=== PATIENT | female | born 1940 | race Caucasian/White ===

== ENCOUNTER → 2018-08-28 | Outpatient (CLI) | payer MEDICARE, OTHER ==
[2018-06-16 15:00] VITALS: BP 132/67
[~2018-08-28] MED LIST: AMLO10TA4 PO; AMLO5TAB4 PO; ASPI-482 PO; ASPI325T11 PO; CIPR500T94 PO; GLIP5TAB22 PO; HYDR12.58 PO; LOSA100T14 PO; METO50TA6 PO; Metoprolol Tartrate PO; NITR0.4T SL; ONDA4TAB7 PO; Ondansetron Hcl/Pf IV; POTA20TA4 PO
--- NOTE | 2018-08-28 10:13 | KCIC ---
Examination: Ultrasound kidneys HISTORY: History of chronic kidney disease stage III COMPARISON: None available FINDINGS: The right kidney measures 10.4 x 4.8 x 4.4 cm. The left kidney measures 9.2 x 3.6 x 4.4 cm. There is cortical thinning identified in the bilateral kidneys. No evidence of hydronephrosis. Urinary bladder is mildly distended Left ureteral jet is not identified. Atherosclerotic aorta. IMPRESSION: Mild thinning of the bilateral renal cortex likely medical renal disease. Electronically signed by: Mat Manzano MD (08/28/2018 10:09 AM) [place] [id number]
== END | disposition home or self-care (01) ==
LOC: KCIC US 09:08
PROVIDERS: ATTEND Nurse Practitioner Adult Health
DX: I12.9 Hypertensive chronic kidney disease with stage 1 through stage 4 chronic kidney disease, or unspecified chronic kidney disease (principal); E11.22 Type 2 diabetes mellitus with diabetic chronic kidney disease; N18.3 Chronic kidney disease, stage 3 (moderate); I70.0 Atherosclerosis of aorta; N32.89 Other specified disorders of bladder
CPT/HCPCS: 76770

== ENCOUNTER 2018-10-19 08:23 | Emergency (ER) | payer MEDICARE, OTHER ==
[~2018-10-19] VITALS: Ht 162.6 cm; Wt 88.5 kg
[~2018-10-19 08:23] MED LIST changes: +AMLO10TA6 PO; +ATOR10TA60 PO
[2018-10-19 08:37] VITALS: BP 171/78
[2018-10-19] MEDS ORDERED: HYDROcodone/APAP 5/325MG 1 TAB TABLET PO ONE (09:15)
[2018-10-19] MEDS ORDERED: METHOCARBAMOL 750 MG TABLET PO ONE (09:15)
--- NOTE | 2018-10-19 09:35 | PHYS DOC ---
Past Medical History Past Medical History: Diabetes-Type II, Hypertension (GEORGE HENDERSON APRN) Past Surgical History: Hysterectomy Additional Past Surgical Histo: arthoscopic knee, eye surgery (GEORGE HENDERSON APRN) Alcohol Use: None Drug Use: None (GEORGE HENDERSON APRN) Adult General Chief Complaint Chief Complaint: UPPER EXTREMITY PAIN HPI HPI Patient is a 78 year old [female, accompanied by her son, with complaints of right shoulder pain that radiates down her entire arm. Patient denies any injury , recent heavy lifting, or numbness. Patient states that her right arm feels weak and that the pain increases with range of motion. Patient states she is unable to lift her arm past 90 anteriorly or laterally. She states that yesterday the pain felt like soreness, this morning she woke up and the pain was more severe. She currently rates the pain a 6 out of 10 on the pain scale at rest and states that the pain increases to at least an 8 out of 10 with movement. Denies any other symptoms including chest pain, shortness of breath, headache, incoordination, swelling, fever, abdominal pain, nausea, vomiting, or diarrhea. (GEORGE HENDERSON APRN) Review of Systems Review of Systems Constitutional: Denies fever or chills [] Eyes: Denies change in visual acuity, redness, or eye pain [] HENT: Denies nasal congestion or sore throat [] Respiratory: Denies cough or shortness of breath [] Cardiovascular: No additional information not addressed in HPI [] GI: Denies abdominal pain, nausea, vomiting, or diarrhea [] Musculoskeletal: Denies back pain; see HPI Integument: Denies rash or skin lesions [] Neurologic: Denies headache, focal weakness or sensory changes [] Complete systems were reviewed and found to be within normal limits, except as documented in this note. (GEORGE HENDERSON APRN) Current Medications Current Medications Current Medications Medications (Trade) Dose Ordered Sig/Deacon Start Time Stop Time Status Last Admin Dose Admin Acetaminophen/ Hydrocodone Bitart (Lortab 5/325) 1 tab 1X ONCE 10/19/18 09:15 10/19/18 09:16 DC 10/19/18 09:22 1 TAB Methocarbamol (Robaxin) 1,500 mg 1X ONCE 10/19/18 09:15 2/3/19 09:16 DC 10/19/18 09:21 1,500 MG (ESPERANZA CARLSON DO) Allergies Allergies Allergies Coded Allergies Type Severity Reaction Last Updated Verified Penicillins Allergy Intermediate Rash 01/24/15 Yes (ESPERANZA CARLSON DO) Physical Exam Physical Exam Constitutional: Well developed, well nourished, no acute distress, non-toxic appearance. [] HENT: Normocephalic, atraumatic, bilateral external ears normal, nose normal. [] Eyes: conjunctiva normal, no discharge. [] Neck: Normal range of motion, no stridor. [] Skin: Warm, dry, no erythema, no rash. [] Extremities: No tenderness of R trapezius, no cyanosis, no clubbing, no edema; pain with ROM of R shoulder, pt unable to lift past 90 anteriorly or laterally , patient reports pain with palpation of the lateral shoulder, no crepitus or deformity noted, equal dinkey engine mechanic bilaterally, no drift of right upper extremity with testing. [] Neurologic: Alert and oriented X 3, normal motor function, normal sensory function, no focal deficits noted. [] Psychologic: Affect normal, judgement normal, mood normal. [] (GEORGE HENDERSON APRN) Current Patient Data Vital Signs Vital Signs Date Time Temp Pulse Resp B/P (MAP) Pulse Ox O2 Delivery O2 Flow Rate FiO2 10/19/18 09:22 18 98 Room Air 10/19/18 08:37 97.8 92 171/78 (109) 97.8 (ESPERANZA CARLSON DO) EKG EKG [] (GEORGE HENDERSON APRN) Radiology/Procedures Radiology/Procedures PROCEDURE: SHOULDER 2+V RIGHT Right shoulder radiograph 10/19/2018 9:09 AM INDICATION: Right shoulder pain, no known injury. COMPARISON: Right shoulder radiograph September 29, 2018. TECHNIQUE: 3 views the right shoulder are provided. FINDINGS: There is no acute fracture or dislocation. Mild osteoarthrosis of the right acromioclavicular joint. Bone mineralization is within normal limits. Joint spaces are maintained. Regional soft tissues are within normal limits. There is no soft tissue gas or osseous erosion. IMPRESSION: No acute fracture or dislocation. [] (GEORGE HENDERSON APRN) Course & Med Decision Making Course & Med Decision Making Pertinent Labs and Imaging studies reviewed. (See chart for details) Dx: R shoulder strain X-ray was negative for any acute fx or dislocation. Pt was given robaxin and a hydrocodone in the ER, reports decreased pain after medications. Follow up with your primary care doctor if symptoms persist, return to the ER if symptoms worsen. Prescriptions written for robaxin and hydrocodone. Patient verbalized an understanding of home care, medications, follow-up, and return to ED instructions and was in agreement with the plan of care. [] (GEORGE HENDERSON APRN) Dragon Disclaimer Dragon Disclaimer This electronic medical record was generated, in whole or in part, using a voice recognition dictation system. (GEORGE HENDERSON APRN) Departure Departure Impression: Primary Impression: Right shoulder pain Additional Impression: Right shoulder strain Disposition: 01 HOME, SELF-CARE Condition: STABLE Referrals: MARCELA KOO MD (PCP) Patient Instructions: Shoulder Sprain Additional Instructions: Fill the prescriptions and use them as directed. Activity as tolerated. You may apply ice or heat to the sore area as needed for comfort. Follow-up with your primary care doctor if symptoms persist, return to the ER symptoms worsen Scripts Hydrocodone Bit/Acetaminophen (HYDROCODONE-APAP 5-325 ) 1 Tab Tablet 1 TAB PO PRN Q6HRS PRN for PAIN for 3 Days, #12 TAB 0 Refills Prov: GEORGE HENDERSON APRN 10/19/18 Methocarbamol (ROBAXIN-750) 750 Mg Tablet 750 MG PO QID PRN for PAIN for 5 Days, #20 TAB 0 Refills Prov: GEORGE HENDEROSN APRN 10/19/18 Attending Signature Attending Signature I have reviewed the PA/NON DESTRUCTIVE EVALUATION TECHNICIAN's note and plan of care. I was available for consultation as needed during the patient's visit in the emergency department. I agree with the clinical impression, plan, and disposition. (ESPERANZA CARLSON DO) Problem Qualifiers Primary Impression: Right shoulder pain Chronicity: acute Qualified Codes: M25.511 - Pain in right shoulder Additional Impression: Right shoulder strain Encounter type: initial encounter Qualified Codes: S46.911A - Strain of unspecified muscle, fascia and tendon at shoulder and upper arm level, right arm , initial encounter GEORGE HENDERSON APRN Oct 19, 2018 09:35 ESPERANZA CARLSON DO Oct 19, 2018 15:57
--- NOTE | 2018-10-19 09:38 | RAD ---
Right shoulder radiograph 10/19/2018 9:09 AM INDICATION: Right shoulder pain, no known injury. COMPARISON: Right shoulder radiograph September 29, 2018. TECHNIQUE: 3 views the right shoulder are provided. FINDINGS: There is no acute fracture or dislocation. Mild osteoarthrosis of the right acromioclavicular joint. Bone mineralization is within normal limits. Joint spaces are maintained. Regional soft tissues are within normal limits. There is no soft tissue gas or osseous erosion. IMPRESSION: No acute fracture or dislocation. Electronically signed by: Darlyn Fortune MD (10/19/2018 9:33 AM) [facility]
[2018-10-19] MEDS ORDERED: METH-38 PO (09:57)
[2018-10-19] MEDS ORDERED: HYDR-2761 PO (09:57)
== END 2018-10-19 10:18 | disposition home or self-care (01) ==
LOC: ER 08:23
DX: S46.811A Strain of other muscles, fascia and tendons at shoulder and upper arm level, right arm, initial encounter (principal); E11.9 Type 2 diabetes mellitus without complications; I10 Essential (primary) hypertension; Z90.710 Acquired absence of both cervix and uterus; Z88.0 Allergy status to penicillin; X50.9XXA Other and unspecified overexertion or strenuous movements or postures, initial encounter; Y93.89 Activity, other specified; Y92.89 Other specified places as the place of occurrence of the external cause; Y99.8 Other external cause status
CPT/HCPCS: 73030; 99283

== ENCOUNTER 2018-11-13 21:34 | Inpatient (IN) | payer MEDICARE, OTHER ==
[~2018-11-13] VITALS: Ht 157.5 cm; Wt 80.3 kg
[~2018-11-13 21:34] MED LIST changes: -AMLO10TA6 PO; +AMLO10TA8 PO; +HYDR-2761 PO; +METH-38 PO
[2018-11-13] MEDS ORDERED: IV NORMAL SALINE 1000ML BAG 1,000 ML IV SCH (21:51)
[2018-11-13 21:59] LABS: BASO # 0.1 x10^3/uL (0.0-0.2); BASO % 1 % (0-3); EOS # 0.1 x10^3/uL (0.0-0.7); EOS % 1 % (0-3); HEMATOCRIT 35.9 % (36.0-47.0); HEMOGLOBIN 11.9 g/dL (12.0-15.5); LYMPH # 2.6 x10^3/uL (1.0-4.8); LYMPH % 32 % (24-48); MEAN CORPUSCULAR HEMOGLOBIN 26 pg (25-35); MEAN CORPUSCULAR HGB CONC 33 g/dL (31-37); MEAN CORPUSCULAR VOLUME 79 fL (79-100); MONO # 0.5 x10^3/uL (0.0-1.1); MONO % 6 % (0-9); NEUT # 4.9 x10^3uL (1.8-7.7); NEUT % 60 % (31-73); PLATELET COUNT 222 x10^3/uL (140-400); RED BLOOD COUNT 4.55 x10^6/uL (3.50-5.40); RED CELL DISTRIBUTION WIDTH 14.4 % (11.5-14.5); WHITE BLOOD COUNT 8.1 x10^3/uL (4.0-11.0)
[2018-11-13 22:07] LABS: CALCIUM 9.3 mg/dL (8.5-10.1); CREATININE 1.8 mg/dL (0.6-1.0); GFR 27.4; POTASSIUM 3.4 mmol/L (3.5-5.1)
[2018-11-13 22:13] LABS: ALBUMIN 4.1 g/dL (3.4-5.0); ALBUMIN/GLOBULIN RATIO 1.3 (1.0-1.7); MAGNESIUM 1.9 mg/dL (1.8-2.4); TOTAL BILIRUBIN 0.3 mg/dL (0.2-1.0); TOTAL PROTEIN 7.2 g/dL (6.4-8.2)
--- NOTE | 2018-11-13 22:24 | PHYS DOC ---
Past Medical History Past Medical History: Diabetes-Type II, Hypertension Additional Past Medical Histor: CVA? Past Surgical History: Hysterectomy Additional Past Surgical Histo: arthoscopic knee, eye surgery Alcohol Use: None Drug Use: None Adult General Chief Complaint Chief Complaint: WEAKNESS/GENERALIZED HPI HPI Patient is a 78-year-old female who presents with report of right leg weakness that occurred at home this evening. Patient states that she had tried to get up from a sitting position to standing position and she was not able to bear weight on that leg. She denies any pain. She states that as soon as she got up she fell right back. She states that she tried to lift her leg and tried to abduct her leg but was unable to due to weakness. Patient also states that she was having some difficulty finding words during that period of time. She states that symptoms lasted close to an hour. She states that currently there resolved. She also indicates that she is just having some generalized weakness and felt a little bit of dizziness as well. She denies any fever. She denies any nausea, vomiting or diaphoresis. She denies chest pain or shortness breath. Review of Systems Review of Systems Constitutional: Denies fever or chills [] Respiratory: Denies cough or shortness of breath [] Cardiovascular: No additional information not addressed in HPI [] GI: Denies abdominal pain, nausea, vomiting, bloody stools or diarrhea [] Musculoskeletal: Denies back pain or joint pain [] Integument: Denies rash or skin lesions [] Neurologic: Denies headache. Complains of right leg weakness and speech deficit [] All other systems were reviewed and found to be within normal limits, except as documented in this note. Current Medications Current Medications Current Medications Medications (Trade) Dose Ordered Sig/Deacon Start Time Stop Time Status Last Admin Dose Admin Sodium Chloride 1,000 ml @ 1,000 mls/hr Q1H 11/13/18 21:51 11/13/18 22:50 DC 11/13/18 22:26 1,000 MLS/HR Allergies Allergies Allergies Coded Allergies Type Severity Reaction Last Updated Verified Penicillins Allergy Intermediate Rash 01/24/15 Yes Physical Exam Physical Exam Constitutional: Well developed, well nourished, no acute distress, non-toxic appearance. [] HENT: Normocephalic, atraumatic, bilateral external ears normal, oropharynx moist, no oral exudates, nose normal. [] Eyes: PERRLA, EOMI, conjunctiva normal, no discharge. [] Neck: Normal range of motion, no tenderness, supple, no stridor. [] Cardiovascular: Regular rate and rhythm[] Lungs & Thorax: Bilateral breath sounds clear to auscultation [] Abdomen: Bowel sounds normal, soft, no tenderness. [] Skin: Warm, dry, no erythema, no rash. [] Extremities: No tenderness, no cyanosis, no clubbing, ROM intact, no edema. [] Neurologic: Alert and oriented X 3, normal motor function, normal sensory function, no focal deficits noted. [] Current Patient Data Vital Signs Vital Signs Date Time Temp Pulse Resp B/P (MAP) Pulse Ox O2 Delivery O2 Flow Rate FiO2 11/13/18 21:34 98.0 87 20 197/89 (125) 100 Room Air 98.0 Lab Values Laboratory Tests Test 11/13/18 21:39 11/13/18 21:50 11/13/18 22:45 Glucose (Fingerstick) 129 mg/dL (70-99) H White Blood Count 8.1 x10^3/uL (4.0-11.0) Red Blood Count 4.55 x10^6/uL (3.50-5.40) Hemoglobin 11.9 g/dL (12.0-15.5) L Hematocrit 35.9 % (36.0-47.0) L Mean Corpuscular Volume 79 fL (79-100) Mean Corpuscular Hemoglobin 26 pg (25-35) Mean Corpuscular Hemoglobin Concent 33 g/dL (31-37) Red Cell Distribution Width 14.4 % (11.5-14.5) Platelet Count 222 x10^3/uL (140-400) Neutrophils (%) (Auto) 60 % (31-73) Lymphocytes (%) (Auto) 32 % (24-48) Monocytes (%) (Auto) 6 % (0-9) Eosinophils (%) (Auto) 1 % (0-3) Basophils (%) (Auto) 1 % (0-3) Neutrophils # (Auto) 4.9 x10^3uL (1.8-7.7) Lymphocytes # (Auto) 2.6 x10^3/uL (1.0-4.8) Monocytes # (Auto) 0.5 x10^3/uL (0.0-1.1) Eosinophils # (Auto) 0.1 x10^3/uL (0.0-0.7) Basophils # (Auto) 0.1 x10^3/uL (0.0-0.2) Sodium Level 144 mmol/L (136-145) Potassium Level 3.4 mmol/L (3.5-5.1) L Chloride Level 102 mmol/L (98-107) Carbon Dioxide Level 24 mmol/L (21-32) Anion Gap 18 (6-14) H Blood Urea Nitrogen 27 mg/dL (7-20) H Creatinine 1.8 mg/dL (0.6-1.0) H Estimated GFR (Cockcroft-Gault) 27.4 BUN/Creatinine Ratio 15 (6-20) Glucose Level 133 mg/dL (70-99) H Calcium Level 9.3 mg/dL (8.5-10.1) Magnesium Level 1.9 mg/dL (1.8-2.4) Total Bilirubin 0.3 mg/dL (0.2-1.0) Aspartate Amino Transferase (AST) 14 U/L (15-37) L Alanine Aminotransferase (ALT) 15 U/L (14-59) Alkaline Phosphatase 132 U/L (46-116) H Troponin I Quantitative < 0.017 ng/mL (0.000-0.055) Total Protein 7.2 g/dL (6.4-8.2) Albumin 4.1 g/dL (3.4-5.0) Albumin/Globulin Ratio 1.3 (1.0-1.7) Thyroid Stimulating Hormone (TSH) 5.714 uIU/mL (0.358-3.74) H Urine Color Yellow Urine Clarity Clear Urine pH 5.5 Urine Specific [place] 1.020 Urine Protein Negative mg/dL (NEG-TRACE) Urine Glucose (UA) Negative mg/dL (NEG) Urine Ketones (Stick) Negative mg/dL (NEG) Urine Blood Negative (NEG) Urine Nitrite Negative (NEG) Urine Bilirubin Negative (NEG) Urine Urobilinogen Dipstick 0.2 mg/dL (0.2 mg/dL) Urine Leukocyte Esterase Small (NEG) Urine RBC 0 /HPF (0-2) Urine WBC 5-10 /HPF (0-4) Urine Squamous Epithelial Cells Occ /LPF Urine Bacteria Many /HPF (0-FEW) Urine Mucus Mod /LPF Laboratory Tests 11/13/18 21:50 Laboratory Tests 11/13/18 21:50 EKG EKG [] Interpretation Time: EKG demonstrates normal sinus rhythm with rate of 78. Radiology/Procedures Radiology/Procedures [] Course & Med Decision Making Course & Med Decision Making Pertinent Labs and Imaging studies reviewed. (See chart for details) [] Dragon Disclaimer Dragon Disclaimer This electronic medical record was generated, in whole or in part, using a voice recognition dictation system. Departure Departure Impression: Primary Impression: TIA (transient ischemic attack) Disposition: ADMITTED INPATIENT Admitting Physician: Yandy Cedeño Condition: GOOD Referrals: MARCELA KOO MD (PCP) AYSE RHODES Jr., DO Nov 13, 2018 22:24
[2018-11-13 22:57] LABS: BILIRUBIN,URINE NEGATIVE (NEG); CLARITY,URINE CLEAR; COLOR,URINE YELLOW; NITRITE,URINE NEGATIVE (NEG); PH,URINE 5.5; PROTEIN,URINE NEGATIVE (NEG-TRACE); UROBILINOGEN,URINE 0.2 mg/dL (0.2 mg/dL)
[2018-11-13 23:03] LABS: BACTERIA,URINE MANY /HPF (0-FEW); RBC,URINE 0 /HPF (0-2); SQUAMOUS EPITHELIAL CELL,UR OCC /LPF
--- NOTE | 2018-11-13 23:30 | RAD ---
EXAM: AP View of the chest DATE: 11/13/2018 9:51 PM INDICATION: Weakness COMPARISON: 09/29/2018 FINDINGS: The heart is not enlarged. Mediastinal and hilar contours are normal. No focal parenchymal airspace opacity. No pleural effusion or pneumothorax. Diffusely decreased bone mineral density. IMPRESSION: 1. No radiographic evidence for acute cardiopulmonary process. Electronically signed by: Hunter Anderson MD (11/13/2018 11:27 PM) [id number]
[2018-11-14] VITALS (7 sets, daily range): BP systolic 125–148; BP diastolic 61–74
[2018-11-14] MEDS ORDERED: cloNIDine HCL 0.1 MG TABLET ONE (00:24)
[2018-11-14] MEDS ORDERED: cloNIDine HCL 0.1 MG TABLET PO ONE (01:00)
[2018-11-14 05:34] LABS: BASO % 1 % (0-3); EOS # 0.1 x10^3/uL (0.0-0.7); EOS % 1 % (0-3); HEMATOCRIT 31.9 % (36.0-47.0); HEMOGLOBIN 10.7 g/dL (12.0-15.5); LYMPH # 2.7 x10^3/uL (1.0-4.8); LYMPH % 36 % (24-48); MEAN CORPUSCULAR HEMOGLOBIN 27 pg (25-35); MEAN CORPUSCULAR HGB CONC 34 g/dL (31-37); MEAN CORPUSCULAR VOLUME 79 fL (79-100); MONO # 0.4 x10^3/uL (0.0-1.1); MONO % 6 % (0-9); NEUT # 4.2 x10^3uL (1.8-7.7); NEUT % 57 % (31-73); PLATELET COUNT 184 x10^3/uL (140-400); RED BLOOD COUNT 4.03 x10^6/uL (3.50-5.40); WHITE BLOOD COUNT 7.4 x10^3/uL (4.0-11.0)
[2018-11-14 05:52] LABS: CALCIUM 8.7 mg/dL (8.5-10.1); CREATININE 1.5 mg/dL (0.6-1.0); GFR 33.8
[2018-11-14 05:55] LABS: POTASSIUM 2.9 mmol/L (3.5-5.1)
[2018-11-14] MEDS ORDERED: POTASSIUM CHLORIDE 20 MEQ TABLET.ER. PO ONE (07:00)
--- NOTE | 2018-11-14 08:39 | PDOC ---
PROGRESS NOTES Subjective Subjective Patient reports R LE weakness has resolved. Objective Objective Vital Signs Date Time Temp Pulse Resp B/P (MAP) Pulse Ox O2 Delivery O2 Flow Rate FiO2 11/14/18 07:55 Room Air 11/14/18 07:15 98.0 68 20 148/74 (98) 97 98.0 Intake and Output 11/14/18 06:59 Intake Total 1100 ml Balance 1100 ml Intake Oral 100 ml IV Total 1000 ml # Voids 2 Physical Exam Abdomen: Normal bowel sounds, Soft, No tenderness Heart: Regular rate Extremities: No edema General: Alert, Oriented X3, No acute distress Lungs: Clear to auscultation Neuro: Other (R UE and R LE 4-5/5) Plan Plan of Care 1. R LE weakness - apparently resolved overnight. Patient had similar episode of R UE and LE weakness about 2 weeks ago which gradually resolved. MRI of her brain was ordered as outpatient but she was unable to have this due to her severe thoracic kyphosis. CT head was attempted last night but same positioning problem prevented her from going in the scanner. Neurology consult pending. Will also have therapies assess her, start ASA daily. She was not on aspirin when her symptoms occurred. 2. hypokalemia - replace po and follow lab. 3. possible UTI - 5-10 WBC's in urine but also some squamous cells, await culture results. 4. HTN - BP quite elevated last night, tx with prn Clonidine. Will resume home meds and follow. 5. DM2 - has been diet-controlled for her. 6. CKD III - appears basically stable on lab. 7. subclinical hypothyroidism - TSH mildly elevated, will check T4. Comment Review of Relevant I have reviewed the following items cherie (where applicable) has been applied. Labs Laboratory Tests Test 11/13/18 21:39 11/13/18 21:50 11/13/18 22:45 11/14/18 04:50 Glucose (Fingerstick) 129 mg/dL (70-99) White Blood Count 8.1 x10^3/uL (4.0-11.0) 7.4 x10^3/uL (4.0-11.0) Red Blood Count 4.55 x10^6/uL (3.50-5.40) 4.03 x10^6/uL (3.50-5.40) Hemoglobin 11.9 g/dL (12.0-15.5) 10.7 g/dL (12.0-15.5) Hematocrit 35.9 % (36.0-47.0) 31.9 % (36.0-47.0) Mean Corpuscular Volume 79 fL (79-100) 79 fL (79-100) Mean Corpuscular Hemoglobin 26 pg (25-35) 27 pg (25-35) Mean Corpuscular Hemoglobin Concent 33 g/dL (31-37) 34 g/dL (31-37) Red Cell Distribution Width 14.4 % (11.5-14.5) 14.0 % (11.5-14.5) Platelet Count 222 x10^3/uL (140-400) 184 x10^3/uL (140-400) Neutrophils (%) (Auto) 60 % (31-73) 57 % (31-73) Lymphocytes (%) (Auto) 32 % (24-48) 36 % (24-48) Monocytes (%) (Auto) 6 % (0-9) 6 % (0-9) Eosinophils (%) (Auto) 1 % (0-3) 1 % (0-3) Basophils (%) (Auto) 1 % (0-3) 1 % (0-3) Neutrophils # (Auto) 4.9 x10^3uL (1.8-7.7) 4.2 x10^3uL (1.8-7.7) Lymphocytes # (Auto) 2.6 x10^3/uL (1.0-4.8) 2.7 x10^3/uL (1.0-4.8) Monocytes # (Auto) 0.5 x10^3/uL (0.0-1.1) 0.4 x10^3/uL (0.0-1.1) Eosinophils # (Auto) 0.1 x10^3/uL (0.0-0.7) 0.1 x10^3/uL (0.0-0.7) Basophils # (Auto) 0.1 x10^3/uL (0.0-0.2) 0.0 x10^3/uL (0.0-0.2) Sodium Level 144 mmol/L (136-145) 142 mmol/L (136-145) Potassium Level 3.4 mmol/L (3.5-5.1) 2.9 mmol/L (3.5-5.1) Chloride Level 102 mmol/L (98-107) 105 mmol/L (98-107) Carbon Dioxide Level 24 mmol/L (21-32) 26 mmol/L (21-32) Anion Gap 18 (6-14) 11 (6-14) Blood Urea Nitrogen 27 mg/dL (7-20) 21 mg/dL (7-20) Creatinine 1.8 mg/dL (0.6-1.0) 1.5 mg/dL (0.6-1.0) Estimated GFR (Cockcroft-Gault) 27.4 33.8 BUN/Creatinine Ratio 15 (6-20) Glucose Level 133 mg/dL (70-99) 115 mg/dL (70-99) Calcium Level 9.3 mg/dL (8.5-10.1) 8.7 mg/dL (8.5-10.1) Magnesium Level 1.9 mg/dL (1.8-2.4) Total Bilirubin 0.3 mg/dL (0.2-1.0) Aspartate Amino Transf (AST/SGOT) 14 U/L (15-37) Alanine Aminotransferase (ALT/SGPT) 15 U/L (14-59) Alkaline Phosphatase 132 U/L (46-116) Troponin I Quantitative < 0.017 ng/mL (0.000-0.055) Total Protein 7.2 g/dL (6.4-8.2) Albumin 4.1 g/dL (3.4-5.0) Albumin/Globulin Ratio 1.3 (1.0-1.7) Thyroid Stimulating Hormone (TSH) 5.714 uIU/mL (0.358-3.74) Urine Color Yellow Urine Clarity Clear Urine pH 5.5 Urine Specific [place] 1.020 Urine Protein Negative mg/dL (NEG-TRACE) Urine Glucose (UA) Negative mg/dL (NEG) Urine Ketones (Stick) Negative mg/dL (NEG) Urine Blood Negative (NEG) Urine Nitrite Negative (NEG) Urine Bilirubin Negative (NEG) Urine Urobilinogen Dipstick 0.2 mg/dL (0.2 mg/dL) Urine Leukocyte Esterase Small (NEG) Urine RBC 0 /HPF (0-2) Urine WBC 5-10 /HPF (0-4) Urine Squamous Epithelial Cells Occ /LPF Urine Bacteria Many /HPF (0-FEW) Urine Mucus Mod /LPF Test 11/14/18 07:26 Glucose (Fingerstick) 109 mg/dL (70-99) Laboratory Tests Test 11/13/18 21:39 11/13/18 21:50 11/13/18 22:45 11/14/18 04:50 Glucose (Fingerstick) 129 mg/dL (70-99) White Blood Count 8.1 x10^3/uL (4.0-11.0) 7.4 x10^3/uL (4.0-11.0) Red Blood Count 4.55 x10^6/uL (3.50-5.40) 4.03 x10^6/uL (3.50-5.40) Hemoglobin 11.9 g/dL (12.0-15.5) 10.7 g/dL (12.0-15.5) Hematocrit 35.9 % (36.0-47.0) 31.9 % (36.0-47.0) Mean Corpuscular Volume 79 fL (79-100) 79 fL (79-100) Mean Corpuscular Hemoglobin 26 pg (25-35) 27 pg (25-35) Mean Corpuscular Hemoglobin Concent 33 g/dL (31-37) 34 g/dL (31-37) Red Cell Distribution Width 14.4 % (11.5-14.5) 14.0 % (11.5-14.5) Platelet Count 222 x10^3/uL (140-400) 184 x10^3/uL (140-400) Neutrophils (%) (Auto) 60 % (31-73) 57 % (31-73) Lymphocytes (%) (Auto) 32 % (24-48) 36 % (24-48) Monocytes (%) (Auto) 6 % (0-9) 6 % (0-9) Eosinophils (%) (Auto) 1 % (0-3) 1 % (0-3) Basophils (%) (Auto) 1 % (0-3) 1 % (0-3) Neutrophils # (Auto) 4.9 x10^3uL (1.8-7.7) 4.2 x10^3uL (1.8-7.7) Lymphocytes # (Auto) 2.6 x10^3/uL (1.0-4.8) 2.7 x10^3/uL (1.0-4.8) Monocytes # (Auto) 0.5 x10^3/uL (0.0-1.1) 0.4 x10^3/uL (0.0-1.1) Eosinophils # (Auto) 0.1 x10^3/uL (0.0-0.7) 0.1 x10^3/uL (0.0-0.7) Basophils # (Auto) 0.1 x10^3/uL (0.0-0.2) 0.0 x10^3/uL (0.0-0.2) Sodium Level 144 mmol/L (136-145) 142 mmol/L (136-145) Potassium Level 3.4 mmol/L (3.5-5.1) 2.9 mmol/L (3.5-5.1) Chloride Level 102 mmol/L (98-107) 105 mmol/L (98-107) Carbon Dioxide Level 24 mmol/L (21-32) 26 mmol/L (21-32) Anion Gap 18 (6-14) 11 (6-14) Blood Urea Nitrogen 27 mg/dL (7-20) 21 mg/dL (7-20) Creatinine 1.8 mg/dL (0.6-1.0) 1.5 mg/dL (0.6-1.0) Estimated GFR (Cockcroft-Gault) 27.4 33.8 BUN/Creatinine Ratio 15 (6-20) Glucose Level 133 mg/dL (70-99) 115 mg/dL (70-99) Calcium Level 9.3 mg/dL (8.5-10.1) 8.7 mg/dL (8.5-10.1) Magnesium Level 1.9 mg/dL (1.8-2.4) Total Bilirubin 0.3 mg/dL (0.2-1.0) Aspartate Amino Transf (AST/SGOT) 14 U/L (15-37) Alanine Aminotransferase (ALT/SGPT) 15 U/L (14-59) Alkaline Phosphatase 132 U/L (46-116) Troponin I Quantitative < 0.017 ng/mL (0.000-0.055) Total Protein 7.2 g/dL (6.4-8.2) Albumin 4.1 g/dL (3.4-5.0) Albumin/Globulin Ratio 1.3 (1.0-1.7) Thyroid Stimulating Hormone (TSH) 5.714 uIU/mL (0.358-3.74) Urine Color Yellow Urine Clarity Clear Urine pH 5.5 Urine Specific [place] 1.020 Urine Protein Negative mg/dL (NEG-TRACE) Urine Glucose (UA) Negative mg/dL (NEG) Urine Ketones (Stick) Negative mg/dL (NEG) Urine Blood Negative (NEG) Urine Nitrite Negative (NEG) Urine Bilirubin Negative (NEG) Urine Urobilinogen Dipstick 0.2 mg/dL (0.2 mg/dL) Urine Leukocyte Esterase Small (NEG) Urine RBC 0 /HPF (0-2) Urine WBC 5-10 /HPF (0-4) Urine Squamous Epithelial Cells Occ /LPF Urine Bacteria Many /HPF (0-FEW) Urine Mucus Mod /LPF Test 11/14/18 07:26 Glucose (Fingerstick) 109 mg/dL (70-99) Medications Current Medications Sodium Chloride 1,000 ml @ 1,000 mls/hr Q1H IV Last administered on 11/13/18at 22:26; Start 11/13/18 at 21:51; Stop 11/13/18 at 22:50; Status DC Clonidine HCl (Catapres) 0.1 mg STK-MED ONCE .ROUTE ; Start 11/14/18 at 00:24; Stop 11/14/18 at 00:25; Status DC Clonidine HCl (Catapres) 0.2 mg 1X ONCE PO Last administered on 11/14/18at 00:29 ; Start 11/14/18 at 01:00; Stop 11/14/18 at 01:01; Status DC Potassium Chloride (Klor-Con) 20 meq 1X ONCE PO Last administered on 11/14/18at 07:52; Start 11/14/18 at 07:00; Stop 11/14/18 at 07:01; Status DC Amlodipine Besylate (Norvasc) 10 mg DAILY PO ; Start 11/14/18 at 09:00; Status UNV Atorvastatin Calcium (Lipitor) 10 mg DAILY PO ; Start 11/14/18 at 09:00; Status UNV Metoprolol Tartrate (Lopressor) 50 mg BID PO ; Start 11/14/18 at 09:00; Status UNV Non-Formulary Medication (Hydrochlorothiazide (Hydrochlorothiazide Tablet)) 12.5 mg DAILY PO ; Start 11/14/18 at 09:00; Status UNV Active Scripts Active Atorvastatin Calcium 10 Mg Tablet 1 Tab PO DAILY Amlodipine Besylate 10 Mg Tablet 10 Mg PO DAILY 30 Days Reported Hydrochlorothiazide Tablet (Hydrochlorothiazide) 12.5 Mg Tablet 12.5 Mg PO DAILY Metoprolol Tartrate 50 Mg Tablet 50 Mg PO BID Vitals/I & O Vital Sign - Last 24 Hours 11/13/18 11/13/18 11/13/18 11/13/18 21:34 21:34 22:04 22:27 Temp 98.0 98.0 Pulse 87 90 83 81 Resp 20 B/P (MAP) 197/89 (125) Pulse Ox 100 100 O2 Delivery Room Air 11/13/18 11/13/18 11/13/18 11/14/18 22:48 23:03 23:36 00:03 Pulse 80 77 78 75 Pulse Ox 100 100 99 97 11/14/18 11/14/18 11/14/18 11/14/18 00:18 00:29 01:10 01:40 Temp 98.0 98.0 Pulse 75 75 70 Resp 18 B/P (MAP) 222/91 146/74 (98) Pulse Ox 99 98 O2 Delivery Room Air Room Air 11/14/18 11/14/18 11/14/18 03:25 07:15 07:55 Temp 97.9 98.0 97.9 98.0 Pulse 67 68 Resp 18 20 B/P (MAP) 134/66 (88) 148/74 (98) Pulse Ox 97 97 O2 Delivery Room Air Room Air Room Air Intake and Output 11/13/18 11/13/18 11/14/18 14:59 22:59 06:59 Intake Total 1100 ml Balance 1100 ml NETTE STONE MD Nov 14, 2018 08:39
--- NOTE | 2018-11-14 08:42 | NUR ---
SW following pt for anticipated dc needs. Chart reviewed. Pt lives at home with spouse. PT/OT pending. SW will await for PT/OT recommendation to evaluate skilled needs. Will continue to follow.
[2018-11-14] MEDS: amLODIPine BESYLATE 10 MG TABLET PO SCH (08:59)
[2018-11-14] MEDS ORDERED: ASPIRIN ENTERIC COATED 81 MG TABLET.DR. PO SCH (09:00)
[2018-11-14] MEDS ORDERED: ATORVASTATIN CALCIUM 10 MG TABLET. PO SCH (09:00)
[2018-11-14] MEDS: METOPROLOL TART IMMED RELEASE 50 MG TABLET. PO SCH ×2 (09:00→20:22)
[2018-11-14] MEDS: hydroCHLOROthiazide 12.5 MG CAPSULE PO SCH (09:00)
[2018-11-14] MEDS: POTASSIUM CHLORIDE 20 MEQ TABLET.ER. PO SCH (09:00)
--- NOTE | 2018-11-14 09:54 | HP ---
ADMIT DATE: 11/13/2018 CHIEF COMPLAINT: Right leg weakness. HISTORY OF PRESENT ILLNESS: The patient is a 78-year-old female who presented to the Emergency Room with the above complaint. She was initially seen in the [facility] about 2 weeks previous to this complaining of right leg and right arm weakness. There was apparently some pain in the right shoulder also. Evaluation at that time included an x-ray of the right shoulder, which showed some mild arthritis, and she was discharged to home with some pain medicine. She reports that those symptoms gradually improved over the course of several days. She felt that she was using her right arm normally and was up and walking about. She was seen in our office for ER follow up. An MRI of the brain was ordered. This was unfortunately not able to be done as the patient has a very severe thoracic kyphosis, and she was unable to be positioned in the MRI scanner. The order was changed to a CT of the head, which was actually scheduled for today. The patient came to the Emergency Room last evening due to the sudden onset of right lower extremity weakness. She felt her leg was heavy, and she could barely move it on the bed. When seen in the Emergency Room, she apparently did not have significant weakness on exam. A CT of the head was ordered, but this was also unable to be performed due to the same problems in positioning the patient so that she can go in the scanner. Neurology was consulted, and the patient was admitted for further care. PAST MEDICAL HISTORY: Hypertension; hyperlipidemia. Diabetes mellitus type 2, diet controlled. Chronic kidney disease stage 3. Mild chronic anemia, subclinical hypothyroidism, history of kidney stones, osteopenia. PAST SURGICAL HISTORY: Right laser lithotripsy and stent placement, 01/28. Hysterectomy, arthroscopic knee surgery, foot surgery and cataract removal. ALLERGIES: THE PATIENT IS ALLERGIC TO PENICILLIN. HOME MEDICATIONS: Amlodipine 10 mg daily, hydrochlorothiazide 12.5 mg daily, metoprolol 50 mg b.i.d., atorvastatin 40 mg daily. The patient was not taking daily aspirin. FAMILY HISTORY: Noncontributory. SOCIAL HISTORY: The patient is and lives at home with her . 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 She is a nonsmoker, does not drink alcohol to excess. REVIEW OF SYSTEMS: The patient denies fever or chills. She denies cough or shortness of breath. She denies chest pain or palpitations. She did not take a flu shot last fall. She denies abdominal pain, nausea or vomiting. She denies dysuria or increased urinary frequency. She has been watching her diet and reports that her fingersticks have been good. PHYSICAL EXAMINATION: GENERAL: The patient is alert and oriented x 3, resting comfortably in bed in no acute distress. HEENT: PERRL, EOMI, sclerae clear. Oropharynx: Mucous membranes moist. NECK: Supple, without lymphadenopathy. CHEST: Clear to auscultation. CARDIOVASCULAR: Regular rhythm. ABDOMEN: Soft, nontender, normoactive bowel sounds are present. EXTREMITIES: Bilateral lower extremities are without edema. NEUROLOGIC: Cranial nerves 2-12 grossly intact. Right upper extremity and right lower extremity strength 4-5/5. BACK: Severe thoracic kyphosis is present. ASSESSMENT AND PLAN: 1. Right lower extremity weakness. This has apparently resolved overnight but certainly is concerning for symptoms of a transient ischemic attack, with a similar episode several weeks ago. At this point, imaging of her brain is apparently not possible. Neurology consult is pending. We will also have PT and OT assess her and start daily aspirin at 81 mg daily. 2. Hypokalemia. The patient's potassium decreased to 2.9 overnight. We will replace this orally and follow her labs. 3. Possible urinary tract infection. The patient had 5-10 wbc's in her urine, but also some squamous epithelial cells. We will await culture results. 4. Hypertension. The patient's blood pressure was quite elevated last night, which was treated with p.r.n. clonidine. We will resume her home medications today and follow. 5. Diabetes mellitus type 2. This is diet controlled for her. An ADA diet has been ordered. 6. Chronic kidney disease stage 3. This appears stable on lab. 7. Subclinical hypothyroidism. The patient's TSH is mildly elevated. We will check a T4 while she is here. NETTE STONE MD DR: JACKIE/ge JOB#: [id number] / [id number] DIPESH
--- NOTE | 2018-11-14 10:59 | EKG ---
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
--- NOTE | 2018-11-14 13:33 | PDOC2 ---
NEUROLOGY CONSULT Date of Admission Date of Admission DATE: 11/14/18 TIME: 13:16 Reason for Consult Reason for Consult: IMPRESSION: TIA symptoms. Word finding difficulties x 20 minutes on 11/13/18. Right LE weakness on 11/13/18. UTI likely. Hypokalemia, K+ 2.9. DM. HTN. CKD. Vit B12 insufficiency. Cognitive impairment. RECOMMENDATIONS/PLAN: ASA daily 162 mg to 325 mg. Carotid A US + Doppler. Echo + Bubble study. Lipids panel. MRI not possible (abnormal back posturing and other issues). Treat medical diseases per team. HISTORY OF THE PRESENT ILLNESS: This is a 78-y-old female patient with above medical disease developed symptoms of right LE weakness on 11/13/18, and her family member noted she had word finding difficulties during conversation. Her symptoms lasted for about 20-30 minutes then resolved. She had a similar episode recently. PAST MEDICAL HISTORY: Hypertension; hyperlipidemia. Diabetes mellitus type 2, diet controlled. Chronic kidney disease stage 3. Mild chronic anemia, subclinical hypothyroidism , history of kidney stones, osteopenia. PAST SURGICAL HISTORY: Right laser lithotripsy and stent placement, 01/28. Hysterectomy, arthroscopic knee surgery, foot surgery and cataract removal. ALLERGIES: ALLERGIC TO PENICILLIN. FAMILY HISTORY: Noncontributory. SOCIAL HISTORY: The patient is and lives at home with her . 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 She is a nonsmoker. She drinks occasionally. MEDICATIONS: Refer to [facility] REVIEW OF SYSTEMS: Constitutional: No malnutrition, weight loss, cachexia. Head: No traumatic brain or head injury. Skin: No edema, or rash. Ear: No infection. Eyes: No vision loss or color blindness. Nose: No bleeding or purulent discharges. Hearing: No hearing decrease. Neck: No injury. Breast: No history of cancer, masses,or discharges. Cardiac: HTN. Pulmonary: No COPD. GI: No GI ulcer, GI bleeding. Urinary/genital: UTI. Endocrinologic: Diabetes Mellitus. Skeletomuscular: No muscular atrophy, deformity. Neurological: see HP. Psychiatric: Denies drug use/abuse. Otherwise, not [id number] review of systems. PHYSICAL EXAMINATION: General appearance is in subacute distress. HEENT: Normocephalic and nontraumatic. Eyes, nose, ears, and throat are unremarkable. Neck is supple. No lymphadenopathy. No crepitus. Cardiovascular: S1, S2, regular rate and rhythm. Pulmonary: Clear to auscultation bilaterally. Abdomen: Bowel sounds are positive. Abdomen is soft, nontender, and nondistended. Extremities: No rash, lesions, or edema. No restriction of range of motion NEUROLOGICAL EXAMINATION: Alert Oriented to time, place and person. PERRL. EOMI. CN: no focal findings. Muscle tone: within normal. Muscle strength: 5 DTR: 2 Plantar reflex: Flexor response bilaterally Gait: not examined in bed. Sensory exam: no abnormal findings. No cerebellar signs elicited. F-T-N test fine. Current Medications Current Medications Current Medications Sodium Chloride 1,000 ml @ 1,000 mls/hr Q1H IV Last administered on 11/13/18at 22:26; Start 11/13/18 at 21:51; Stop 11/13/18 at 22:50; Status DC Clonidine HCl (Catapres) 0.1 mg STK-MED ONCE .ROUTE ; Start 11/14/18 at 00:24; Stop 11/14/18 at 00:25; Status DC Clonidine HCl (Catapres) 0.2 mg 1X ONCE PO Last administered on 11/14/18at 00:29 ; Start 11/14/18 at 01:00; Stop 11/14/18 at 01:01; Status DC Potassium Chloride (Klor-Con) 20 meq 1X ONCE PO Last administered on 11/14/18at 07:52; Start 11/14/18 at 07:00; Stop 11/14/18 at 07:01; Status DC Amlodipine Besylate (Norvasc) 10 mg DAILY PO Last administered on 11/14/18at 08: 59; Start 11/14/18 at 09:00 Atorvastatin Calcium (Lipitor) 10 mg DAILY PO ; Start 11/14/18 at 09:00; Status Cancel Metoprolol Tartrate (Lopressor) 50 mg BID PO Last administered on 11/14/18at 09: 00; Start 11/14/18 at 09:00 Hydrochlorothiazide (Microzide) 12.5 mg DAILY PO Last administered on 11/14/18at 09:00; Start 11/14/18 at 09:00 Aspirin (Ecotrin) 81 mg DAILYWBKFT PO Last administered on 11/14/18at 09:00; Start 11/14/18 at 09:00 Atorvastatin Calcium (Lipitor) 10 mg QHS PO ; Start 11/14/18 at 21:00 Potassium Chloride (Klor-Con) 20 meq DAILYWBKFT PO Last administered on at 09:00; Start 11/14/18 at 08:45 Active Scripts Active Atorvastatin Calcium 10 Mg Tablet 1 Tab PO DAILY Amlodipine Besylate 10 Mg Tablet 10 Mg PO DAILY 30 Days Reported Hydrochlorothiazide Tablet (Hydrochlorothiazide) 12.5 Mg Tablet 12.5 Mg PO DAILY Metoprolol Tartrate 50 Mg Tablet 50 Mg PO BID Allergies Allergies: Allergies Coded Allergies Type Severity Reaction Last Updated Verified Penicillins Allergy Intermediate Rash 01/24/15 Yes ROS Review of System The patient denies any associated fevers, chills, headache, ear pain, rhinorrhea , sore throat, stiff neck, productive cough, chest pain, shortness of breath, back or flank pain, abdominal pain, nausea, vomiting, diarrhea, constipation, dysuria, rash, numbness, weakness, tingling, incontinence, difficulty ambulating, or diaphoresis. Physical Exam Physical Exam General: Well developed, well nourished, no acute distress, well appearing HEENT: Pupils equally round and reactive to light, EOMI, no discharge, normal conjunctiva Neck: Supple, no nuchal rigidity, no JVD, trachea midline, no tenderness Cardiac: RRR, no murmurs, no gallops, no rubs Chest/Lungs: CTAB, no wheeze, no rhonchi, no crackles Abdomen: soft, non-distended, no guarding, no peritoneal signs, non-tender Back: No tenderness Extremities: no edema, pulses intact, non-tender,capillary refill <3 sec bilateral upper and lower extremities, Neuro: Alert and oriented x 4, no focal deficits, normal speech Vitals Vitals: Vital Signs Date Time Temp Pulse Resp B/P (MAP) Pulse Ox O2 Delivery O2 Flow Rate FiO2 11/14/18 11:05 97.7 63 18 143/70 (94) 98 Room Air 97.7 Labs Labs Laboratory Tests Test 11/13/18 21:39 11/13/18 21:50 11/13/18 22:45 11/14/18 04:50 Glucose (Fingerstick) 129 mg/dL (70-99) White Blood Count 8.1 x10^3/uL (4.0-11.0) 7.4 x10^3/uL (4.0-11.0) Red Blood Count 4.55 x10^6/uL (3.50-5.40) 4.03 x10^6/uL (3.50-5.40) Hemoglobin 11.9 g/dL (12.0-15.5) 10.7 g/dL (12.0-15.5) Hematocrit 35.9 % (36.0-47.0) 31.9 % (36.0-47.0) Mean Corpuscular Volume 79 fL (79-100) 79 fL (79-100) Mean Corpuscular Hemoglobin 26 pg (25-35) 27 pg (25-35) Mean Corpuscular Hemoglobin Concent 33 g/dL (31-37) 34 g/dL (31-37) Red Cell Distribution Width 14.4 % (11.5-14.5) 14.0 % (11.5-14.5) Platelet Count 222 x10^3/uL (140-400) 184 x10^3/uL (140-400) Neutrophils (%) (Auto) 60 % (31-73) 57 % (31-73) Lymphocytes (%) (Auto) 32 % (24-48) 36 % (24-48) Monocytes (%) (Auto) 6 % (0-9) 6 % (0-9) Eosinophils (%) (Auto) 1 % (0-3) 1 % (0-3) Basophils (%) (Auto) 1 % (0-3) 1 % (0-3) Neutrophils # (Auto) 4.9 x10^3uL (1.8-7.7) 4.2 x10^3uL (1.8-7.7) Lymphocytes # (Auto) 2.6 x10^3/uL (1.0-4.8) 2.7 x10^3/uL (1.0-4.8) Monocytes # (Auto) 0.5 x10^3/uL (0.0-1.1) 0.4 x10^3/uL (0.0-1.1) Eosinophils # (Auto) 0.1 x10^3/uL (0.0-0.7) 0.1 x10^3/uL (0.0-0.7) Basophils # (Auto) 0.1 x10^3/uL (0.0-0.2) 0.0 x10^3/uL (0.0-0.2) Sodium Level 144 mmol/L (136-145) 142 mmol/L (136-145) Potassium Level 3.4 mmol/L (3.5-5.1) 2.9 mmol/L (3.5-5.1) Chloride Level 102 mmol/L (98-107) 105 mmol/L (98-107) Carbon Dioxide Level 24 mmol/L (21-32) 26 mmol/L (21-32) Anion Gap 18 (6-14) 11 (6-14) Blood Urea Nitrogen 27 mg/dL (7-20) 21 mg/dL (7-20) Creatinine 1.8 mg/dL (0.6-1.0) 1.5 mg/dL (0.6-1.0) Estimated GFR (Cockcroft-Gault) 27.4 33.8 BUN/Creatinine Ratio 15 (6-20) Glucose Level 133 mg/dL (70-99) 115 mg/dL (70-99) Calcium Level 9.3 mg/dL (8.5-10.1) 8.7 mg/dL (8.5-10.1) Magnesium Level 1.9 mg/dL (1.8-2.4) Total Bilirubin 0.3 mg/dL (0.2-1.0) Aspartate Amino Transf (AST/SGOT) 14 U/L (15-37) Alanine Aminotransferase (ALT/SGPT) 15 U/L (14-59) Alkaline Phosphatase 132 U/L (46-116) Troponin I Quantitative < 0.017 ng/mL (0.000-0.055) Total Protein 7.2 g/dL (6.4-8.2) Albumin 4.1 g/dL (3.4-5.0) Albumin/Globulin Ratio 1.3 (1.0-1.7) Thyroid Stimulating Hormone (TSH) 5.714 uIU/mL (0.358-3.74) Urine Color Yellow Urine Clarity Clear Urine pH 5.5 Urine Specific [place] 1.020 Urine Protein Negative mg/dL (NEG-TRACE) Urine Glucose (UA) Negative mg/dL (NEG) Urine Ketones (Stick) Negative mg/dL (NEG) Urine Blood Negative (NEG) Urine Nitrite Negative (NEG) Urine Bilirubin Negative (NEG) Urine Urobilinogen Dipstick 0.2 mg/dL (0.2 mg/dL) Urine Leukocyte Esterase Small (NEG) Urine RBC 0 /HPF (0-2) Urine WBC 5-10 /HPF (0-4) Urine Squamous Epithelial Cells Occ /LPF Urine Bacteria Many /HPF (0-FEW) Urine Mucus Mod /LPF Creatine Kinase 33 U/L (26-192) Vitamin B12 Level 245 pg/mL (247-911) Free Thyroxine 1.18 ng/dL (0.76-1.46) Test 11/14/18 07:26 Glucose (Fingerstick) 109 mg/dL (70-99) Laboratory Tests Test 11/13/18 21:39 11/13/18 21:50 11/13/18 22:45 11/14/18 04:50 Glucose (Fingerstick) 129 mg/dL (70-99) White Blood Count 8.1 x10^3/uL (4.0-11.0) 7.4 x10^3/uL (4.0-11.0) Red Blood Count 4.55 x10^6/uL (3.50-5.40) 4.03 x10^6/uL (3.50-5.40) Hemoglobin 11.9 g/dL (12.0-15.5) 10.7 g/dL (12.0-15.5) Hematocrit 35.9 % (36.0-47.0) 31.9 % (36.0-47.0) Mean Corpuscular Volume 79 fL (79-100) 79 fL (79-100) Mean Corpuscular Hemoglobin 26 pg (25-35) 27 pg (25-35) Mean Corpuscular Hemoglobin Concent 33 g/dL (31-37) 34 g/dL (31-37) Red Cell Distribution Width 14.4 % (11.5-14.5) 14.0 % (11.5-14.5) Platelet Count 222 x10^3/uL (140-400) 184 x10^3/uL (140-400) Neutrophils (%) (Auto) 60 % (31-73) 57 % (31-73) Lymphocytes (%) (Auto) 32 % (24-48) 36 % (24-48) Monocytes (%) (Auto) 6 % (0-9) 6 % (0-9) Eosinophils (%) (Auto) 1 % (0-3) 1 % (0-3) Basophils (%) (Auto) 1 % (0-3) 1 % (0-3) Neutrophils # (Auto) 4.9 x10^3uL (1.8-7.7) 4.2 x10^3uL (1.8-7.7) Lymphocytes # (Auto) 2.6 x10^3/uL (1.0-4.8) 2.7 x10^3/uL (1.0-4.8) Monocytes # (Auto) 0.5 x10^3/uL (0.0-1.1) 0.4 x10^3/uL (0.0-1.1) Eosinophils # (Auto) 0.1 x10^3/uL (0.0-0.7) 0.1 x10^3/uL (0.0-0.7) Basophils # (Auto) 0.1 x10^3/uL (0.0-0.2) 0.0 x10^3/uL (0.0-0.2) Sodium Level 144 mmol/L (136-145) 142 mmol/L (136-145) Potassium Level 3.4 mmol/L (3.5-5.1) 2.9 mmol/L (3.5-5.1) Chloride Level 102 mmol/L (98-107) 105 mmol/L (98-107) Carbon Dioxide Level 24 mmol/L (21-32) 26 mmol/L (21-32) Anion Gap 18 (6-14) 11 (6-14) Blood Urea Nitrogen 27 mg/dL (7-20) 21 mg/dL (7-20) Creatinine 1.8 mg/dL (0.6-1.0) 1.5 mg/dL (0.6-1.0) Estimated GFR (Cockcroft-Gault) 27.4 33.8 BUN/Creatinine Ratio 15 (6-20) Glucose Level 133 mg/dL (70-99) 115 mg/dL (70-99) Calcium Level 9.3 mg/dL (8.5-10.1) 8.7 mg/dL (8.5-10.1) Magnesium Level 1.9 mg/dL (1.8-2.4) Total Bilirubin 0.3 mg/dL (0.2-1.0) Aspartate Amino Transf (AST/SGOT) 14 U/L (15-37) Alanine Aminotransferase (ALT/SGPT) 15 U/L (14-59) Alkaline Phosphatase 132 U/L (46-116) Troponin I Quantitative < 0.017 ng/mL (0.000-0.055) Total Protein 7.2 g/dL (6.4-8.2) Albumin 4.1 g/dL (3.4-5.0) Albumin/Globulin Ratio 1.3 (1.0-1.7) Thyroid Stimulating Hormone (TSH) 5.714 uIU/mL (0.358-3.74) Urine Color Yellow Urine Clarity Clear Urine pH 5.5 Urine Specific [place] 1.020 Urine Protein Negative mg/dL (NEG-TRACE) Urine Glucose (UA) Negative mg/dL (NEG) Urine Ketones (Stick) Negative mg/dL (NEG) Urine Blood Negative (NEG) Urine Nitrite Negative (NEG) Urine Bilirubin Negative (NEG) Urine Urobilinogen Dipstick 0.2 mg/dL (0.2 mg/dL) Urine Leukocyte Esterase Small (NEG) Urine RBC 0 /HPF (0-2) Urine WBC 5-10 /HPF (0-4) Urine Squamous Epithelial Cells Occ /LPF Urine Bacteria Many /HPF (0-FEW) Urine Mucus Mod /LPF Creatine Kinase 33 U/L (26-192) Vitamin B12 Level 245 pg/mL (247-911) Free Thyroxine 1.18 ng/dL (0.76-1.46) Test 11/14/18 07:26 Glucose (Fingerstick) 109 mg/dL (70-99) SATNAM MILLER MD Nov 14, 2018 13:33
[2018-11-14] MEDS: CYANOCOBALAMIN (VITAMIN B-12) 1,000 MCG TABLET. PO SCH (15:03)
--- NOTE | 2018-11-14 17:33 | RAD ---
Clinical Indications: Transient ischemic attack. Exam : Carotid Duplex with Grayscale Ultrasound and Spectral and Color Doppler Analysis: PQRS Compliance Statement - Stenosis calculations for CT, MR and conventional angiography are based upon measurement of the distal ICA diameter in accordance with the NASCET methodology. Stenosis calculations for carotid ultrasound studies are derived from validated velocity criteria which are known to correlate with the NASCET methodology. Comparison study: None available. Findings: The common, internal and external carotid arteries were examined by grayscale, color and spectral Doppler ultrasound. Moderate atherosclerotic calcifications identified in the bilateral common carotid arteries right greater than left. Flow in both vertebral arteries was antegrade and normal. The following are the velocities and ratios in the carotid arteries on both sides: RIGHT ICA PV: 167cm/sec RIGHT CCA PV: 121cm/sec RIGHT ICA ED: 20cm/sec RIGHT IC/CCPV: 1.4 RIGHT VERTEBRAL: antegrade flow RIGHT % STENOSIS: 50-69% LEFT ICA PV: 118cm/sec LEFT CCA PV: 61cm/sec LEFT ICA ED: 20cm/sec LEFT IC/CCPV: 1.9 LEFT VERTEBRAL: antegrade flow LEFT % STENOSIS: About 50% <50% ICA Stenosis: PSV < 125cm/s (EDV < 40cm/s; SVR < 2.0) 50-69% ICA Stenosis: PSV < 125-229cm/s (EDV 40-99cm/s; SVR 2.0-3.9) >70% ICA Stenosis: PSV > 230cm/s (EDV >100cm/s; SVR >4.0) Impression: 1. Elevated velocity identified in the proximal right internal carotid artery probably 50-69% stenosis however the ICA to CCA velocity ratios are within normal limits. Follow-up CT angiogram neck can be considered if clinically feasible. 2. About 50% stenosis left internal carotid artery. Electronically signed by: Mat Manzano MD (11/14/2018 5:31 PM) [id number]
[2018-11-14] MEDS: ATORVASTATIN CALCIUM 10 MG TABLET. PO SCH (20:21)
[2018-11-15 03:35] VITALS: BP 138/68
[2018-11-15 05:12] LABS: CREATININE 1.5 mg/dL (0.6-1.0); GFR 33.8; POTASSIUM 3.6 mmol/L (3.5-5.1)
[2018-11-15 05:29] LABS: CHOLESTEROL/HDL RATIO 6.1
[2018-11-15 07:00] VITALS: BP 141/68
[2018-11-15] MEDS ORDERED: ASPIRIN ENTERIC COATED 81 MG TABLET.DR. PO SCH (08:00)
[2018-11-15] MEDS: POTASSIUM CHLORIDE 20 MEQ TABLET.ER. PO SCH (09:38)
[2018-11-15] MEDS: METOPROLOL TART IMMED RELEASE 50 MG TABLET. PO SCH ×2 (09:40→20:35)
[2018-11-15] MEDS: hydroCHLOROthiazide 12.5 MG CAPSULE PO SCH (09:42)
[2018-11-15] MEDS: CYANOCOBALAMIN (VITAMIN B-12) 1,000 MCG TABLET. PO SCH (09:42)
[2018-11-15] MEDS: amLODIPine BESYLATE 10 MG TABLET PO SCH (09:43)
[2018-11-15 11:00] VITALS: BP 141/67
--- NOTE | 2018-11-15 12:37 | PDOC ---
SUBJECTIVE Subjective States that she is doing a little bit better. Worked with physical therapy yesterday and feels she can get around with the walker pretty well. Says that PT noticed weakness in her right leg. Hoping to be able to go home today OBJECTIVE Vital Signs Vital Signs Date Time Temp Pulse Resp B/P (MAP) Pulse Ox O2 Delivery O2 Flow Rate FiO2 11/15/18 11:00 98.5 63 18 141/67 (91) 97 Room Air 98.5 11/15/18 09:43 64 141/68 11/15/18 09:40 64 141/68 11/15/18 08:00 Room Air 11/15/18 07:00 97.8 64 18 141/68 (92) 97 Room Air 97.8 11/15/18 03:35 98.2 63 18 138/68 (91) 97 Room Air 98.2 11/14/18 23:33 98.0 68 18 135/72 (93) 96 Room Air 98.0 11/14/18 20:22 65 126/61 11/14/18 20:00 Room Air 11/14/18 19:57 98.1 65 18 126/61 (82) 96 Room Air 98.1 11/14/18 15:06 98.5 61 18 125/63 (83) 97 Room Air 98.5 I & O Intake and Output 11/15/18 06:59 Intake Total 780 ml Balance 780 ml Intake Oral 780 ml # Voids 5 PHYSICAL EXAM Physical Exam GENERAL: The patient is alert and oriented x 3 HEENT: PERRL, EOMI, sclerae clear. Oropharynx: Mucous membranes moist. NECK: Supple, without lymphadenopathy. CHEST: Clear to auscultation. CARDIOVASCULAR: Regular rhythm. EXTREMITIES: Bilateral lower extremities are without edema. NEUROLOGIC: Cranial nerves 2-12 grossly intact BACK: Severe thoracic kyphosis is present. ASSESSMENT/PLAN Assessment/Plan Pt is a 78yo CF admitted for TIA symptoms 1. Right lower extremity weakness- concern for TIA. Pt can not get imaging done due to kyphosis. Neurology following. Carotid doppler shows increased velocity in proximal right internal carotid artery. ECHO pending. Pt on aspirin at 81 mg daily. 2. Hypokalemia- replaced and resolved 3. Possible urinary tract infection. The patient had 5-10 wbc's in her urine, but also some squamous epithelial cells. We will await culture results. 4. Hypertension-moderately controlled on HCTZ 12.5mg, Metoprolol 50mg BID and Norvasc 10mg 5. Diabetes mellitus type 2. This is diet controlled for her. An ADA diet has been ordered. 6. Chronic kidney disease stage 3. This appears stable on lab. 7. Subclinical hypothyroidism. The patient's TSH is mildly elevated. We will check a T4 while she is here. 8. Vitamin B12 Deficiency- receiving po replacement COMMENT Lab Laboratory Tests Test 11/15/18 04:10 Sodium Level 141 mmol/L (136-145) Potassium Level 3.6 mmol/L (3.5-5.1) Chloride Level 103 mmol/L (98-107) Carbon Dioxide Level 26 mmol/L (21-32) Anion Gap 12 (6-14) Blood Urea Nitrogen 21 mg/dL (7-20) Creatinine 1.5 mg/dL (0.6-1.0) Estimated GFR (Cockcroft-Gault) 33.8 Glucose Level 99 mg/dL (70-99) Calcium Level 9.0 mg/dL (8.5-10.1) Triglycerides Level 177 mg/dL (0-150) Cholesterol Level 196 mg/dL (0-200) LDL Cholesterol, Calculated 129 mg/dL (0-100) VLDL Cholesterol, Calculated 35 mg/dL (0-40) Non-HDL Cholesterol Calculated 164 mg/dL (0-129) HDL Cholesterol 32 mg/dL (40-60) Cholesterol/HDL Ratio 6.1 MARCELA KOO MD Nov 15, 2018 12:37
[2018-11-15 15:15] VITALS: BP 122/64
--- NOTE | 2018-11-15 15:32 | PDOC ---
PROGRESS NOTES Assessment Assessment TIA symptoms. Word finding difficulties x 20 minutes on 11/13/18. Right LE weakness on 11/13/18. UTI likely. Hypokalemia, K+ 2.9. DM. HTN. HLD. CKD. Renal insufficiency. Vit B12 insufficiency. Carotid A stenosis. Cognitive impairment. RECOMMENDATIONS/PLAN: ASA 325 mg daily. Lipitor 10 mg HS. Vit B12 1 mg daily. MRI not possible (abnormal back posturing and other issues), canceled. Treat medical diseases per team. Consult Vascular Surgery. HISTORY OF THE PRESENT ILLNESS: This is a 78-y-old female patient with above medical disease developed symptoms of right LE weakness on 11/13/18, and her family member noted she had word finding difficulties during conversation. Her symptoms lasted for about 20-30 minutes then resolved. She had a similar episode recently. PAST MEDICAL HISTORY: Hypertension; hyperlipidemia. Diabetes mellitus type 2, diet controlled. Chronic kidney disease stage 3. Mild chronic anemia, subclinical hypothyroidism , history of kidney stones, osteopenia. PAST SURGICAL HISTORY: Right laser lithotripsy and stent placement, 01/28. Hysterectomy, arthroscopic knee surgery, foot surgery and cataract removal. ALLERGIES: ALLERGIC TO PENICILLIN. FAMILY HISTORY: Noncontributory. SOCIAL HISTORY: The patient is and lives at home with her . 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 She is a nonsmoker. She drinks occasionally. MEDICATIONS: Refer to [facility] REVIEW OF SYSTEMS: Constitutional: No malnutrition, weight loss, cachexia. Head: No traumatic brain or head injury. Skin: No edema, or rash. Ear: No infection. Eyes: No vision loss or color blindness. Nose: No bleeding or purulent discharges. Hearing: No hearing decrease. Neck: No injury. Breast: No history of cancer, masses,or discharges. Cardiac: HTN. Pulmonary: No COPD. GI: No GI ulcer, GI bleeding. Urinary/genital: UTI. Endocrinologic: Diabetes Mellitus. Skeletomuscular: No muscular atrophy, deformity. Neurological: see HP. Psychiatric: Denies drug use/abuse. Otherwise, not [id number] review of systems. PHYSICAL EXAMINATION: General appearance is in no acute distress. HEENT: Normocephalic and nontraumatic. Eyes, nose, ears, and throat are unremarkable. Neck is supple. No lymphadenopathy. No crepitus. Cardiovascular: S1, S2, regular rate and rhythm. Pulmonary: Clear to auscultation bilaterally. Abdomen: Bowel sounds are positive. Abdomen is soft, nontender, and nondistended. Extremities: No rash, lesions, or edema. No restriction of range of motion NEUROLOGICAL EXAMINATION: Alert Oriented to time, place and person. PERRL. EOMI. CN: no focal findings. Muscle tone: within normal. Muscle strength: 5 DTR: 2 Plantar reflex: Flexor response bilaterally Gait: not examined in bed. Sensory exam: no abnormal findings. No cerebellar signs elicited. F-T-N test fine. Objective Objective Vital Signs Date Time Temp Pulse Resp B/P (MAP) Pulse Ox O2 Delivery O2 Flow Rate FiO2 11/15/18 11:00 98.5 63 18 141/67 (91) 97 Room Air 98.5 Intake and Output 11/15/18 07:00 Intake Total 780 ml Balance 780 ml Intake Oral 780 ml # Voids 5 Vitals Signs Vitals VS - Last 72 Hours, by Label Date Time Temp Pulse Resp B/P (MAP) Pulse Ox O2 Delivery O2 Flow Rate FiO2 11/15/18 11:00 98.5 63 18 141/67 (91) 97 Room Air 98.5 11/15/18 09:43 64 141/68 11/15/18 09:40 64 141/68 11/15/18 08:00 Room Air 11/15/18 07:00 97.8 64 18 141/68 (92) 97 Room Air 97.8 11/15/18 03:35 98.2 63 18 138/68 (91) 97 Room Air 98.2 11/14/18 23:33 98.0 68 18 135/72 (93) 96 Room Air 98.0 11/14/18 20:22 65 126/61 11/14/18 20:00 Room Air 11/14/18 19:57 98.1 65 18 126/61 (82) 96 Room Air 98.1 11/14/18 15:06 98.5 61 18 125/63 (83) 97 Room Air 98.5 11/14/18 11:05 97.7 63 18 143/70 (94) 98 Room Air 97.7 11/14/18 09:00 68 148/74 11/14/18 08:59 68 148/74 11/14/18 07:55 Room Air 11/14/18 07:15 98.0 68 20 148/74 (98) 97 Room Air 98.0 Laboratory Laboratory Laboratory Tests Test 11/15/18 04:10 Sodium Level 141 mmol/L (136-145) Potassium Level 3.6 mmol/L (3.5-5.1) Chloride Level 103 mmol/L (98-107) Carbon Dioxide Level 26 mmol/L (21-32) Anion Gap 12 (6-14) Blood Urea Nitrogen 21 mg/dL (7-20) Creatinine 1.5 mg/dL (0.6-1.0) Estimated GFR (Cockcroft-Gault) 33.8 Glucose Level 99 mg/dL (70-99) Calcium Level 9.0 mg/dL (8.5-10.1) Triglycerides Level 177 mg/dL (0-150) Cholesterol Level 196 mg/dL (0-200) LDL Cholesterol, Calculated 129 mg/dL (0-100) VLDL Cholesterol, Calculated 35 mg/dL (0-40) Non-HDL Cholesterol Calculated 164 mg/dL (0-129) HDL Cholesterol 32 mg/dL (40-60) Cholesterol/HDL Ratio 6.1 Medication Medications Current Medications Aspirin (Ecotrin) 162 mg DAILYWBKFT PO Last administered on 11/15/18at 09:42; Start 11/15/18 at 08:00 Atorvastatin Calcium (Lipitor) 10 mg QHS PO Last administered on 11/14/18at 20:21 ; Start 11/14/18 at 21:00 Comment Review of Relevant I have reviewed the following items cherie (where applicable) has been applied. SATNAM MILLER MD Nov 15, 2018 15:32
[2018-11-15 19:47] VITALS: BP 128/64
[2018-11-15] MEDS: ATORVASTATIN CALCIUM 10 MG TABLET. PO SCH (20:35)
[2018-11-15 23:57] VITALS: BP 123/62
[2018-11-16 03:39] VITALS: BP 137/62
[2018-11-16 07:49] VITALS: BP 156/70
[2018-11-16] MEDS ORDERED: ASPIRIN ENTERIC COATED 325 MG TABLET.DR. PO SCH (08:00)
[2018-11-16] MEDS: amLODIPine BESYLATE 10 MG TABLET PO SCH (08:59)
[2018-11-16] MEDS: CYANOCOBALAMIN (VITAMIN B-12) 1,000 MCG TABLET. PO SCH (08:59)
[2018-11-16] MEDS: hydroCHLOROthiazide 12.5 MG CAPSULE PO SCH (08:59)
[2018-11-16] MEDS: POTASSIUM CHLORIDE 20 MEQ TABLET.ER. PO SCH (08:59)
[2018-11-16] MEDS: METOPROLOL TART IMMED RELEASE 50 MG TABLET. PO SCH (09:00)
--- NOTE | 2018-11-16 09:44 | PDOC ---
SUBJECTIVE Subjective Pt doing well. No new symptoms since admission. OBJECTIVE Vital Signs Vital Signs Date Time Temp Pulse Resp B/P (MAP) Pulse Ox O2 Delivery O2 Flow Rate FiO2 11/16/18 09:00 110 156/70 11/16/18 08:59 110 156/70 11/16/18 07:49 97.7 110 18 156/70 (98) 98 Room Air 97.7 11/16/18 03:39 98.0 66 18 137/62 (87) 98 Room Air 98.0 11/15/18 23:57 98.1 66 18 123/62 (82) 97 Room Air 98.1 11/15/18 20:35 73 128/64 11/15/18 20:00 Room Air 11/15/18 19:47 97.5 73 18 128/64 (85) 98 Room Air 97.5 11/15/18 15:15 98.1 84 18 122/64 (83) 97 Room Air 98.1 11/15/18 11:00 98.5 63 18 141/67 (91) 97 Room Air 98.5 11/15/18 09:43 64 141/68 I & O Intake and Output 11/16/18 07:00 Intake Total 910 ml Balance 910 ml Intake Oral 910 ml # Voids 4 PHYSICAL EXAM Physical Exam GENERAL: The patient is alert and oriented x 3 HEENT: PERRL, EOMI, sclerae clear. Oropharynx: Mucous membranes moist. NECK: Supple, without lymphadenopathy. CHEST: Clear to auscultation. CARDIOVASCULAR: Regular rhythm. EXTREMITIES: Bilateral lower extremities are without edema. NEUROLOGIC: Cranial nerves 2-12 grossly intact BACK: Severe thoracic kyphosis is present. ASSESSMENT/PLAN Assessment/Plan Pt is a 78yo CF admitted for TIA symptoms 1. Right lower extremity weakness- concern for TIA. Pt can not get imaging done due to kyphosis. Neurology following. Carotid doppler shows increased velocity in proximal right internal carotid artery. Vascular consult pending. ECHO pending. Pt on aspirin at 81 mg daily. 2. Hypokalemia- replaced and resolved 3. Possible urinary tract infection. The patient had 5-10 wbc's in her urine, but also some squamous epithelial cells. Urine cx with <10k bacteria. 4. Hypertension-moderately controlled on HCTZ 12.5mg, Metoprolol 50mg BID and Norvasc 10mg 5. Diabetes mellitus type 2. This is diet controlled for her. An ADA diet has been ordered. HbA1C 10/04 was 6 6. Chronic kidney disease stage 3. This appears stable on lab. 7. Subclinical hypothyroidism- continue to monitor outpatient 8. Vitamin B12 Deficiency- receiving po replacement MARCELA KOO MD Nov 16, 2018 09:44
[2018-11-16 11:10] VITALS: BP 133/62
[2018-11-16 11:41] LABS: HEMOGLOBIN 12.1 g/dL (12.0-15.5); RED BLOOD COUNT 4.55 x10^6/uL (3.50-5.40); RED CELL DISTRIBUTION WIDTH 14.3 % (11.5-14.5); WHITE BLOOD COUNT 7.8 x10^3/uL (4.0-11.0)
--- NOTE | 2018-11-16 11:47 | PDOC ---
Provider Note Provider Note Vascular Surgery Consult dictated 78 year old female with neurologic episode of right arm/leg weakness and slurred speech likely a TIA or small stroke. Carotid duplex shows left ICA stenosis of <50% and right ICA 50-60%. With the mild stenosis of the left ICA this is unlikely the source of her stroke symptoms and surgery is not recommended. Agree with daily aspirin and echo. Will see her in the office in a few weeks with duplex scan. Will need every 6-12 months scans. Further imaging with CT or MR has not been possible because of her neck disease and inability to be flat. ISREAL KRAMER MD Nov 16, 2018 11:47
--- NOTE | 2018-11-16 11:51 | EKG ---
[facility] [address] [place] [address] Test Date: 2018-11-16 Test Time: 11:48:12 Pat Name: FRANKIE BUNCH Department: Room: 3 1 Gender: F Store Receiver: : 1940 Requested By: MARCELA KOO Order Number: [id number] Reading MD: Jose Cruz MD Measurements Intervals [place] Rate: 60 P: ME: QRS: -12 QRSD: 86 T: 35 QT: 394 QTc: 398 Interpretive Statements SR Electronically Signed On 11-18-2018 7:01:09 [employer] by Jose Cruz MD
[2018-11-16 11:54] LABS: CALCIUM 8.7 mg/dL (8.5-10.1); CREATININE 1.6 mg/dL (0.6-1.0); GFR 31.3; POTASSIUM 3.7 mmol/L (3.5-5.1)
[2018-11-16] MEDS ORDERED: CYAN10005 PO (14:22)
[2018-11-16] MEDS ORDERED: POTA20TA4 PO (14:22)
[2018-11-16] MEDS ORDERED: ASPI325T11 PO (14:22)
--- NOTE | 2018-11-16 14:29 | PDOC3 ---
Discharge Summary Date of Admission: Nov 14, 2018 Date of Discharge: Nov 17, 2018 Follow-Up: Other (2 weeks with Vascular Surgery) Admitting Diagnosis comment: TIA FINAL DIAGNOSIS TIA, Hypokalemia, Abnormal U/A with normal urine culture, HTN, DM2, CKD- Stage 3 , Subclinical hypothyroidism, Vitamin B12 deficiency Brief Hospital Course Pt is a 78yo CF admitted for TIA symptoms 1. Right lower extremity weakness- concern for TIA. Pt can not get imaging done due to kyphosis. Neurology following. Carotid doppler shows increased velocity in proximal right internal carotid artery. Vascular has seen and would like her to follow up and be monitored by them. Pt will need outpatient ECHO. Pt on aspirin at 81 mg daily. 2. Hypokalemia- replaced and resolved 3. Possible urinary tract infection. The patient had 5-10 wbc's in her urine, but also some squamous epithelial cells. Urine cx with <10k bacteria. Asymptomatic. 4. Hypertension-moderately controlled on HCTZ 12.5mg, Metoprolol 50mg BID and Norvasc 10mg 5. Diabetes mellitus type 2. This is diet controlled for her. An ADA diet has been ordered. HbA1C 10/04 was 6 6. Chronic kidney disease stage 3. This appears stable on lab. 7. Subclinical hypothyroidism- continue to monitor outpatient 8. Vitamin B12 Deficiency- receiving po replacement Discharge Medications Current Medications Sodium Chloride 1,000 ml @ 1,000 mls/hr Q1H IV Last administered on 11/13/18at 22:26; Start 11/13/18 at 21:51; Stop 11/13/18 at 22:50; Status DC Clonidine HCl (Catapres) 0.1 mg STK-MED ONCE .ROUTE ; Start 11/14/18 at 00:24; Stop 11/14/18 at 00:25; Status DC Clonidine HCl (Catapres) 0.2 mg 1X ONCE PO Last administered on 11/14/18at 00:29 ; Start 11/14/18 at 01:00; Stop 11/14/18 at 01:01; Status DC Potassium Chloride (Klor-Con) 20 meq 1X ONCE PO Last administered on 11/14/18at 07:52; Start 11/14/18 at 07:00; Stop 11/14/18 at 07:01; Status DC Amlodipine Besylate (Norvasc) 10 mg DAILY PO Last administered on 3/3/19at 08: 59; Start 11/14/18 at 09:00 Atorvastatin Calcium (Lipitor) 10 mg DAILY PO ; Start 11/14/18 at 09:00; Status Cancel Metoprolol Tartrate (Lopressor) 50 mg BID PO Last administered on 11/16/18 09: 00; Start 11/14/18 at 09:00 Hydrochlorothiazide (Microzide) 12.5 mg DAILY PO Last administered on 11/16/18 08:59; Start 11/14/18 at 09:00 Aspirin (Ecotrin) 81 mg DAILYWBKFT PO Last administered on 11/14/18 09:00; Start 11/14/18 at 09:00; Stop 11/14/18 at 13:23; Status DC Atorvastatin Calcium (Lipitor) 10 mg QHS PO Last administered on 11/15/18 20:35 ; Start 11/14/18 at 21:00 Potassium Chloride (Klor-Con) 20 meq DAILYWBKFT PO Last administered on 08:59; Start 11/14/18 at 08:45 Aspirin (Ecotrin) 162 mg DAILYWBKFT PO Last administered on 11/15/18 09:42; Start 11/15/18 at 08:00; Stop 11/15/18 at 15:30; Status DC Cyanocobalamin (Vitamin B-12) 1,000 mcg DAILY PO Last administered on 11/16/18 08:59; Start 11/14/18 at 15:00 Aspirin (Ecotrin) 325 mg DAILYWBKFT PO Last administered on 11/16/18 08:59; Start 11/16/18 at 08:00 Active Scripts Active Atorvastatin Calcium 10 Mg Tablet 1 Tab PO DAILY Amlodipine Besylate 10 Mg Tablet 10 Mg PO DAILY 30 Days Reported Hydrochlorothiazide Tablet (Hydrochlorothiazide) 12.5 Mg Tablet 12.5 Mg PO DAILY Metoprolol Tartrate 50 Mg Tablet 50 Mg PO BID Vital Signs Vital Signs Date Time Temp Pulse Resp B/P (MAP) Pulse Ox O2 Delivery O2 Flow Rate FiO2 11/16/18 11:10 98.0 85 17 133/62 (85) 99 Room Air 98.0 Labs Laboratory Tests Test 11/15/18 04:10 11/16/18 10:47 Sodium Level 141 mmol/L (136-145) 138 mmol/L (136-145) Potassium Level 3.6 mmol/L (3.5-5.1) 3.7 mmol/L (3.5-5.1) Chloride Level 103 mmol/L (98-107) 102 mmol/L (98-107) Carbon Dioxide Level 26 mmol/L (21-32) 27 mmol/L (21-32) Anion Gap 12 (6-14) 9 (6-14) Blood Urea Nitrogen 21 mg/dL (7-20) 24 mg/dL (7-20) Creatinine 1.5 mg/dL (0.6-1.0) 1.6 mg/dL (0.6-1.0) Estimated GFR (Cockcroft-Gault) 33.8 31.3 Glucose Level 99 mg/dL (70-99) 120 mg/dL (70-99) Calcium Level 9.0 mg/dL (8.5-10.1) 8.7 mg/dL (8.5-10.1) Triglycerides Level 177 mg/dL (0-150) Cholesterol Level 196 mg/dL (0-200) LDL Cholesterol, Calculated 129 mg/dL (0-100) VLDL Cholesterol, Calculated 35 mg/dL (0-40) Non-HDL Cholesterol Calculated 164 mg/dL (0-129) HDL Cholesterol 32 mg/dL (40-60) Cholesterol/HDL Ratio 6.1 White Blood Count 7.8 x10^3/uL (4.0-11.0) Red Blood Count 4.55 x10^6/uL (3.50-5.40) Hemoglobin 12.1 g/dL (12.0-15.5) Hematocrit 36.0 % (36.0-47.0) Mean Corpuscular Volume 79 fL (79-100) Mean Corpuscular Hemoglobin 27 pg (25-35) Mean Corpuscular Hemoglobin Concent 34 g/dL (31-37) Red Cell Distribution Width 14.3 % (11.5-14.5) Platelet Count 204 x10^3/uL (140-400) Laboratory Tests Test 11/16/18 10:47 White Blood Count 7.8 x10^3/uL (4.0-11.0) Red Blood Count 4.55 x10^6/uL (3.50-5.40) Hemoglobin 12.1 g/dL (12.0-15.5) Hematocrit 36.0 % (36.0-47.0) Mean Corpuscular Volume 79 fL (79-100) Mean Corpuscular Hemoglobin 27 pg (25-35) Mean Corpuscular Hemoglobin Concent 34 g/dL (31-37) Red Cell Distribution Width 14.3 % (11.5-14.5) Platelet Count 204 x10^3/uL (140-400) Sodium Level 138 mmol/L (136-145) Potassium Level 3.7 mmol/L (3.5-5.1) Chloride Level 102 mmol/L (98-107) Carbon Dioxide Level 27 mmol/L (21-32) Anion Gap 9 (6-14) Blood Urea Nitrogen 24 mg/dL (7-20) Creatinine 1.6 mg/dL (0.6-1.0) Estimated GFR (Cockcroft-Gault) 31.3 Glucose Level 120 mg/dL (70-99) Calcium Level 8.7 mg/dL (8.5-10.1) Allergies Allergies Coded Allergies Type Severity Reaction Last Updated Verified Penicillins Allergy Intermediate Rash 01/24/15 Yes Disposition/Orders: D/C to Home MARCELA KOO MD Nov 16, 2018 14:29
--- NOTE | 2018-11-16 15:11 | PDOC ---
PROGRESS NOTES Assessment Assessment TIA symptoms. Word finding difficulties x 20 minutes on 11/13/18. Right LE weakness on 11/13/18. UTI likely. Hypokalemia, K+ 2.9. DM. HTN. HLD. CKD. Renal insufficiency. Vit B12 insufficiency. Carotid A stenosis. Cognitive impairment. RECOMMENDATIONS/PLAN: Continue ASA 325 mg daily. Continue Lipitor 10 mg HS. Vit B12 1 mg daily. MRI not possible (abnormal neck/back posturing and other issues), canceled. Treat medical diseases per team. Consulted Vascular Surgery. FU with PCP. FU with Vascular Surgery. HISTORY OF THE PRESENT ILLNESS: This is a 78-y-old female patient with above medical disease developed symptoms of right LE weakness on 11/13/18, and her family member noted she had word finding difficulties during conversation. Her symptoms lasted for about 20-30 minutes then resolved. She had a similar episode recently. PAST MEDICAL HISTORY: Hypertension; hyperlipidemia. Diabetes mellitus type 2, diet controlled. Chronic kidney disease stage 3. Mild chronic anemia, subclinical hypothyroidism , history of kidney stones, osteopenia. PAST SURGICAL HISTORY: Right laser lithotripsy and stent placement, 01/28. Hysterectomy, arthroscopic knee surgery, foot surgery and cataract removal. ALLERGIES: ALLERGIC TO PENICILLIN. FAMILY HISTORY: Noncontributory. SOCIAL HISTORY: The patient is and lives at home with her . 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 She is a nonsmoker. She drinks occasionally. MEDICATIONS: Refer to [facility] REVIEW OF SYSTEMS: Constitutional: No malnutrition, weight loss, cachexia. Head: No traumatic brain or head injury. Skin: No edema, or rash. Ear: No infection. Eyes: No vision loss or color blindness. Nose: No bleeding or purulent discharges. Hearing: No hearing decrease. Neck: No injury. Breast: No history of cancer, masses,or discharges. Cardiac: HTN. Pulmonary: No COPD. GI: No GI ulcer, GI bleeding. Urinary/genital: UTI. Endocrinologic: Diabetes Mellitus. Skeletomuscular: No muscular atrophy, deformity. Neurological: see HP. Psychiatric: Denies drug use/abuse. Otherwise, not [id number] review of systems. PHYSICAL EXAMINATION: General appearance is in no acute distress. HEENT: Normocephalic and nontraumatic. Eyes, nose, ears, and throat are unremarkable. Neck is supple. No lymphadenopathy. No crepitus. Cardiovascular: S1, S2, regular rate and rhythm. Pulmonary: Clear to auscultation bilaterally. Abdomen: Bowel sounds are positive. Abdomen is soft, nontender, and nondistended. Extremities: No rash, lesions, or edema. No restriction of range of motion NEUROLOGICAL EXAMINATION: Alert Oriented to time, place and person. PERRL. EOMI. CN: no focal findings. Muscle tone: within normal. Muscle strength: 5 DTR: 2 Plantar reflex: Flexor response bilaterally Gait: not examined in bed. Sensory exam: no abnormal findings. No cerebellar signs elicited. F-T-N test fine. Objective Objective Vital Signs Date Time Temp Pulse Resp B/P (MAP) Pulse Ox O2 Delivery O2 Flow Rate FiO2 11/16/18 11:10 98.0 85 17 133/62 (85) 99 Room Air 98.0 Intake and Output 11/16/18 06:59 Intake Total 910 ml Balance 910 ml Intake Oral 910 ml # Voids 4 Vitals Signs Vitals VS - Last 72 Hours, by Label Date Time Temp Pulse Resp B/P (MAP) Pulse Ox O2 Delivery O2 Flow Rate FiO2 11/16/18 11:10 98.0 85 17 133/62 (85) 99 Room Air 98.0 11/16/18 09:00 110 156/70 11/16/18 08:59 110 156/70 11/16/18 08:00 Room Air 11/16/18 07:49 97.7 110 18 156/70 (98) 98 Room Air 97.7 11/16/18 03:39 98.0 66 18 137/62 (87) 98 Room Air 98.0 11/15/18 23:57 98.1 66 18 123/62 (82) 97 Room Air 98.1 11/15/18 20:35 73 128/64 11/15/18 20:00 Room Air 11/15/18 19:47 97.5 73 18 128/64 (85) 98 Room Air 97.5 11/15/18 15:15 98.1 84 18 122/64 (83) 97 Room Air 98.1 11/15/18 11:00 98.5 63 18 141/67 (91) 97 Room Air 98.5 11/15/18 09:43 64 141/68 11/15/18 09:40 64 141/68 11/15/18 08:00 Room Air 11/15/18 07:00 97.8 64 18 141/68 (92) 97 Room Air 97.8 Laboratory Laboratory Laboratory Tests Test 11/16/18 10:47 White Blood Count 7.8 x10^3/uL (4.0-11.0) Red Blood Count 4.55 x10^6/uL (3.50-5.40) Hemoglobin 12.1 g/dL (12.0-15.5) Hematocrit 36.0 % (36.0-47.0) Mean Corpuscular Volume 79 fL (79-100) Mean Corpuscular Hemoglobin 27 pg (25-35) Mean Corpuscular Hemoglobin Concent 34 g/dL (31-37) Red Cell Distribution Width 14.3 % (11.5-14.5) Platelet Count 204 x10^3/uL (140-400) Sodium Level 138 mmol/L (136-145) Potassium Level 3.7 mmol/L (3.5-5.1) Chloride Level 102 mmol/L (98-107) Carbon Dioxide Level 27 mmol/L (21-32) Anion Gap 9 (6-14) Blood Urea Nitrogen 24 mg/dL (7-20) Creatinine 1.6 mg/dL (0.6-1.0) Estimated GFR (Cockcroft-Gault) 31.3 Glucose Level 120 mg/dL (70-99) Calcium Level 8.7 mg/dL (8.5-10.1) Microbiology 11/13/18 Urine Culture - Final, Complete 11/13/18 Urine Culture Result 1 (NICOL) - Final, Complete Medication Medications Current Medications Aspirin (Ecotrin) 325 mg DAILYWBKFT PO Last administered on 11/16/18at 08:59; Start 11/16/18 at 08:00 Comment Review of Relevant I have reviewed the following items cherie (where applicable) has been applied. SATNAM MILLER MD Nov 16, 2018 15:11
--- NOTE | 2018-11-16 16:42 | NUR ---
Patient information sent to [facility] to resume and eval for PT and OT treatment. Dr. Wheeler notified that patient was discharged and needed outpatient echocardiogram. Cardiology office to call patient 11/17/18 to schedule.
--- NOTE | 2018-11-16 16:44 | NUR ---
Discharge Note: FRANKIE BUNCH Discharge instructions and discharge home medications reviewed with Patient and a copy given. All questions have been answered and understanding verbalized. The following instructions and handouts were given: Diet, activity, medication and follow up instructions provided to patient as well as stroke prevention education. Discontinued lines and drains: Peripheral IV discontinued and catheter intact. Patient discharged to Home w/services with Family Member via Wheelchair
--- NOTE | 2018-11-17 05:04 | CONS ---
DATE OF CONSULTATION: 11/16/2018 CHIEF COMPLAINT: Carotid arterial disease evaluation. HISTORY OF PRESENT ILLNESS: The patient is a 78-year-old female who presented to the Emergency Room on 11/13/2018 with symptoms of right leg weakness and slurred speech. She also reports some more mild weakness in her right arm. The symptoms slowly resolved. She feels her speech is back to baseline. She feels she has very mild weakness now in her right arm and right leg, which is significantly improved. She reports no weakness in her left arm or left leg during this episode. She reports no previous episodes of stroke-like symptoms. She reports no previous strokes in the past. At home, she had not been on any type of anticoagulation including no aspirin. During her admission, she has been evaluated by the medical physicians and Neurology. A carotid artery duplex scan was performed, which shows less than 50% stenosis of the left internal carotid artery with a peak systolic velocity of 118 and the ICA to CCA ratio of 1.9 and a right internal carotid artery stenosis of 50-60%, likely closer to 50% with a peak systolic velocity of 167 and a ratio of 1.4. CT imaging and MRI imaging was unobtainable because of the patient's curvature in her neck and she was not able to be positioned flat for these scans. The patient also reports that normally she walks long distances without pain in her legs. She has had no chest pain or shortness of breath. REVIEW OF SYSTEMS: A 10-point review of systems was performed, which was otherwise negative besides what is mentioned in the history of present illness. PAST MEDICAL HISTORY: 1. Hypertension. 2. Hyperlipidemia. 3. Diabetes mellitus. 4. Chronic renal insufficiency. 5. Chronic anemia. 6. Osteopenia. 7. Newly diagnosed carotid arterial disease. PAST SURGICAL HISTORY: Includes: 1. Hysterectomy. 2. Cataract surgery. 3. Knee surgery. ALLERGIES: INCLUDE PENICILLIN. MEDICATIONS: Please see her full MAR. SOCIAL HISTORY: The patient lives at home with her , she does not smoke and does not drink alcohol. PHYSICAL EXAMINATION: GENERAL: The patient is awake and alert, currently in no apparent distress. VITAL SIGNS: She is afebrile and her vital signs are stable. NECK: Supple with no carotid bruits. HEART: Regular rate and rhythm without murmurs. LUNGS: Clear to auscultation bilaterally. ABDOMEN: Soft, nondistended and nontender. BACK: Her back has thoracic kyphosis and is not able to be extended to lay flat in the bed. EXTREMITIES: Her bilateral lower extremities are warm without edema, palpable pedal pulses and no tissue breakdown. Her bilateral upper extremities are warm with palpable radial pulses. NEUROLOGIC: She is awake and alert, oriented x 3, moving all 4 extremities with normal 5/5 strength in her left arm and leg, mild decrease in strength likely 4/5 in her right arm and right leg. Her speech is normal. There are no cranial nerve deficits. FAMILY HISTORY: Noncontributory. IMPRESSION: 1. Episode of right arm and right leg weakness with slurred speech consistent with a transient ischemic attack or small stroke. 2. Carotid arterial disease with less than 50% stenosis of the left internal carotid artery and 50-____% stenosis of the right internal carotid artery. PLAN: The patient had a neurologic episode of right arm and leg weakness associated with slurred speech. This is likely a transient ischemic attack or small stroke. Imaging studies with a CAT scan and MRI were unobtainable because of the patient's thoracic spine curvature. Neurology has evaluated the patient and started her on daily aspirin. Based on her carotid artery duplex scan results, she has very mild disease in her left internal carotid artery of approximately 50%, peak systolic velocity of 118 and ICA to CCA ratio of 1.9. This does not correlate with significant disease that would cause a stroke. For this, I recommend aspirin. I do not recommend surgical intervention of her left carotid artery with the mild disease. Her right internal carotid artery has a 50-60% stenosis and also does not need surgical intervention at this time. I recommend follow up in our office with a carotid artery duplex scan and office visit. She will be on daily aspirin. Neurology and medicine are working up other sources of her stroke with an echo of her heart. ISREAL KRAMER MD DR: OSWALDO/ge JOB#: [id number] / [id number]
== END 2018-11-16 16:00 | disposition home health service (06) | DRG 69 ==
LOC: ER 21:34 → 6 SOUTH 23:29
PROVIDERS: ADMIT Family Medicine; ATTEND Family Medicine
DX: G45.9 Transient cerebral ischemic attack, unspecified (principal); N39.0 Urinary tract infection, site not specified; E03.9 Hypothyroidism, unspecified; E11.22 Type 2 diabetes mellitus with diabetic chronic kidney disease; E53.8 Deficiency of other specified B group vitamins; E78.5 Hyperlipidemia, unspecified; E87.6 Hypokalemia; I12.9 Hypertensive chronic kidney disease with stage 1 through stage 4 chronic kidney disease, or unspecified chronic kidney disease; M19.90 Unspecified osteoarthritis, unspecified site; M40.204 Unspecified kyphosis, thoracic region; M85.80 Other specified disorders of bone density and structure, unspecified site; N18.3 Chronic kidney disease, stage 3 (moderate); Z79.82 Long term (current) use of aspirin; Z79.899 Other long term (current) drug therapy; Z86.73 Personal history of transient ischemic attack (TIA), and cerebral infarction without residual deficits; Z87.442 Personal history of urinary calculi; Z90.710 Acquired absence of both cervix and uterus; Z88.0 Allergy status to penicillin
CPT/HCPCS: 36415; 71045; 80048; 80053; 80061; 81001; 82550; 82607; 82962; 83735; 84439; 84443; 84484; 85025; 85027; 87086; 93005; 93880; 96360; 96361; J7030; 97110; 97116; 99285-25

== ENCOUNTER → 2018-12-11 | Outpatient (CLI) | payer MEDICARE, OTHER ==
[2018-11-16 11:10] VITALS: BP 133/62
[~2018-12-11] MED LIST changes: +CYAN10005 PO
--- NOTE | 2018-12-11 10:57 | CARD ---
MR#: [id number] Date of Study: 12/11/2018 Ordering Physician: JAMILAH PRADO, Referring Physician: JAMILAH PRADO, Tech: Leonarda Herring MING APPROVED REPORT EXAM: Two-dimensional and M-mode echocardiogram with Doppler and color Doppler. Other Information Quality : AverageHR: 73bpm Rhythm : NSRTechnically limited study due to body habitus. INDICATION CVA/TIA 2D DIMENSIONS RVDd2.3 (2.9-3.5cm)Left Atrium(2D)4.5 (1.6-4.0cm) IVSd1.4 (0.7-1.1cm)Aortic Root(2D)2.9 (2.0-3.7cm) LVDd3.5 (3.9-5.9cm)LVOT Diameter2.1 (1.8-2.4cm) PWd1.0 (0.7-1.1cm)LVDs2.0 (2.5-4.0cm) FS (%) 41.8 %SV36.5 ml LVEF(%)70.0 (>50%) M-Mode DIMENSIONS Left Atrium(MM)4.55 (2.5-4.0cm)Aortic Root2.93 (2.2-3.7cm) Aortic Valve AoV Peak Pipo.145.7cm/sAoV VTI32.1cm AO Peak GR.8.5mmHgLVOT Peak Pipo.100.2cm/s AO Mean GR.4mmHgAVA (VMAX)2.31cm2 MEENU (VTI)2.30cm2 Mitral Valve MV E Uswondbw991.4cm/sMV DECEL XDPT817wh MV A Jluoytdv371.7cm/sE/A Ratio0.9 MV A Jvuexrin395hl Pulmonary Valve PV Peak Qlhqkpmt71.8cm/s Tricuspid Valve TR P. Kctyasie390zk/sRAP FGTDBZNJ2kmGe TR Peak Gr.87ohOmMIIB90avUw LEFT VENTRICLE The left ventricle is normal size. Proximal septal thickening is noted. The left ventricular systolic function is normal and the ejection fraction is within normal range. The Ejection Fraction is 65-70% . There is normal LV segmental wall motion. Transmitral Doppler flow pattern is Grade I-abnormal rela xation pattern. RIGHT VENTRICLE The right ventricle is normal size. There is normal right ventricular wall thickness. The right ventr icular systolic function is normal. ATRIA The left atrium is mildly dilated. The right atrium size is normal. The interatrial septum is intact with no evidence for an atrial septal defect or patent foramen ovale as noted on 2-D or Doppler imagi ng. AORTIC VALVE The aortic valve is mildly calcified. The aortic valve is trileaflet. Doppler and Color Flow revealed trace aortic regurgitation. There is no significant aortic valvular stenosis. There is no aortic joseph vular vegetation. MITRAL VALVE The mitral valve is normal in structure and function. There is no evidence of mitral valve prolapse. There is no mitral valve stenosis. Doppler and Color Flow revealed no mitral valve regurgitation note d. TRICUSPID VALVE The tricuspid valve is normal in structure and function. Doppler and Color Flow revealed trace tricus pid regurgitation.There is mild pulmonary hypertension.The PA pressure was estimated at 37 mmHg. Ther e is no tricuspid valve prolapse or vegetation. There is no tricuspid valve stenosis. PULMONIC VALVE The pulmonic valve is not well visualized. GREAT VESSELS The aortic root is normal in size. The ascending aorta is normal in size. The IVC is normal in size a nd collapses >50% with inspiration. PERICARDIAL EFFUSION There is no evidence of significant pericardial effusion. Critical Notification Critical Value: No <Conclusion> The left ventricular systolic function is normal and the ejection fraction is within normal range. Th e Ejection Fraction is 65-70%. There is normal LV segmental wall motion. Doppler and Color Flow revealed trace tricuspid regurgitation.There is mild pulmonary hypertension.Th e PA pressure was estimated at 37 mmHg. Signed by : Jose Cruz, Electronically Approved : 12/11/2018 10:56:36
== END | disposition home or self-care (01) ==
LOC: ECHO 09:45
PROVIDERS: ATTEND Internal Medicine Cardiovascular Disease
DX: I27.20 Pulmonary hypertension, unspecified (principal); I70.0 Atherosclerosis of aorta; I51.7 Cardiomegaly; G45.9 Transient cerebral ischemic attack, unspecified
CPT/HCPCS: 93306

== ENCOUNTER → 2019-08-17 | Outpatient (CLI) | payer MEDICARE, OTHER ==
[~2019-08-17] MED LIST changes: +CYAN-25 PO; -CYAN10005 PO; -NITR0.4T SL; +NITR0.4T24 SL
--- NOTE | 2019-08-17 15:38 | KCIC ---
EXAM: Renal sonogram. HISTORY: Renal insufficiency. TECHNIQUE: Sonographic imaging the kidneys and bladder was performed. COMPARISON: CT dated 09/30/2018. FINDINGS: The right kidney measures 11.0 cm [id number]. The left kidney measures 8.2 cm [id number]. The renal parenchyma is slightly echogenic. The aorta is atherosclerotic and partially obscured. The right ureteral jet is not seen during the exam. The bladder is otherwise unremarkable. The and inferior vena cava is partially obscured. IMPRESSION: 1. Left renal atrophy. 2. Echogenic renal parenchymal. This can be seen with medical renal disease. 3. Nonvisualization of the right ureteral jet. There is no evidence of hydronephrosis. Electronically signed by: Mary Kate Adams MD (08/17/2019 3:35 PM) [facility]
== END ==
LOC: KCIC US 14:31
PROVIDERS: ATTEND Nurse Practitioner Adult Health
DX: I12.9 Hypertensive chronic kidney disease with stage 1 through stage 4 chronic kidney disease, or unspecified chronic kidney disease (principal); E11.22 Type 2 diabetes mellitus with diabetic chronic kidney disease; N18.3 Chronic kidney disease, stage 3 (moderate); I70.0 Atherosclerosis of aorta; M19.90 Unspecified osteoarthritis, unspecified site; E78.00 Pure hypercholesterolemia, unspecified; Z90.710 Acquired absence of both cervix and uterus
CPT/HCPCS: 76770

== ENCOUNTER → 2021-07-19 | Outpatient (CLI) | payer MEDICARE, OTHER ==
[2021-02-02 10:26] VITALS: BP 137/74
[~2021-07-19] MED LIST changes: +AMLO-187 PO; -AMLO10TA8 PO; +POTA-121 PO; -POTA20TA4 PO
--- NOTE | 2021-07-19 17:57 | KCIC ---
XR KNEE_AP BILAT STANDING, XR KNEE _3 VIEWS_LT History: Primary osteoarthritis of the left knee. Comparison: None. Technique: Standing AP view of the bilateral knees. 3 additional views of the left knee. Findings: Decreased osseous mineralization. Left knee medial tibiofemoral compartment narrowing with medial and patellofemoral compartment osteophytes. Small quadriceps insertion and patellar origin enthesophytes . Trace left knee suprapatellar fluid. Single view of the right knee demonstrates medial and lateral compartment osteophytes. Benign-appeari ng sclerotic density in the distal femur metaphysis. Possible mild medial compartment narrowing. Impression: 1. Left knee medial compartment predominant osteoarthritis. Electronically signed by: Lex Zayas MD (07/19/2021 5:54 PM) [id number]
== END ==
LOC: KCIC 12:48
PROVIDERS: ATTEND Nurse Practitioner
DX: M17.12 Unilateral primary osteoarthritis, left knee (principal); M25.762 Osteophyte, left knee; M25.862 Other specified joint disorders, left knee
CPT/HCPCS: 73562; 73565